=== PATIENT | female | born 1950 | race Caucasian/White ===

== ENCOUNTER → 2018-02-17 | Outpatient (CLI) | payer OTHER ==
[~2018-02-17] MED LIST: ALBUAER3 IN; ARIP1TAB5 PO; ATOR40TA52 PO; BUPR-60 PO; BUPR100T14 PO; CAR125T PO; CITA-77 PO; ESZO3TAB53 PO; FLUT250M2 INH; HYDR25TA4 PO; HYDR50CA2 PO; LISI10TA6 PO; OXYC10TA44 PO; POT10T PO; PROP60CA8 PO
[2018-02-17 08:38] LABS: Albumin 3.5 g/dL (3.4-5.0); BUN/Creatinine Ratio 13.7; Bilirubin, Total 0.3 mg/dL (0.2-1.0); Calcium 8.4 mg/dL (8.5-10.1); Potassium 4.2 mmol/L (3.5-5.1); Total Protein 6.5 g/dL (6.4-8.2)
== END | disposition home or self-care (01) ==
LOC: LAB 07:06
PROVIDERS: ATTEND Internal Medicine
DX: I10 Essential (primary) hypertension (principal); E78.00 Pure hypercholesterolemia, unspecified; R63.5 Abnormal weight gain
CPT/HCPCS: 36415; 80053; 84439; 84443

== ENCOUNTER → 2018-12-29 | Outpatient (CLI) | payer OTHER ==
[~2018-12-29] MED LIST changes: +PROP60CA34 PO; -PROP60CA8 PO
[2018-12-29 15:16] LABS: Basophils # (auto) 0 uL; Basophils % (auto) 0.5 % (0.0-2.0); Eosinophils # (auto) 0.1 uL; Eosinophils % (auto) 1.6 % (0.0-7.0); Hemoglobin 13.2 g/dL (12.2-16.2); Lymphocytes # (auto) 1.8 uL; Lymphocytes % (auto) 24.2 % (10.0-50.0); Mean Corpuscular Hemoglobin 29.3 pg (28.0-32.0); Mean Corpuscular Hgb Conc. 33.9 g/dL (32.0-36.0); Mean Corpuscular Volume 86.3 fL (80.0-100.0); Monocytes # (auto) 0.6 uL; Monocytes % (auto) 7.5 % (0.0-12.0); Neutrophils # (auto) 4.9 uL; Neutrophils % (auto) 66.2 % (37.0-80.0); Platelet Count (auto) 257 10^3/uL (140-450); Red Blood Cells 4.51 10^6/uL (4.0-5.20); Red Cell Distribution Width 14.3 % (11.8-14.3); White Blood Cell 7.4 10^3/uL (4.4-10.8)
[2018-12-29 15:35] LABS: Albumin 3.8 g/dL (3.4-5.0); Calcium 8.8 mg/dL (8.5-10.1); Potassium 4.2 mmol/L (3.5-5.1)
[2018-12-29 15:38] LABS: BUN/Creatinine Ratio 12.5; Bilirubin, Total 0.3 mg/dL (0.2-1.0); Total Protein 6.8 g/dL (6.4-8.2)
== END | disposition home or self-care (01) ==
LOC: LAB 14:45
PROVIDERS: ATTEND Internal Medicine
DX: R07.89 Other chest pain (principal); I10 Essential (primary) hypertension
CPT/HCPCS: 36415; 80053; 84443; 85025

== ENCOUNTER 2019-03-13 16:52 | Emergency (ER) | payer OTHER ==
[~2019-03-13] VITALS: Ht 157.5 cm; Wt 70.3 kg
[2019-03-13 18:22] VITALS: BP 140/68
== END 2019-03-13 19:01 | disposition home or self-care (01) ==
LOC: ER 16:54
DX: S63.502A Unspecified sprain of left wrist, initial encounter (principal); S63.501A Unspecified sprain of right wrist, initial encounter; S93.402A Sprain of unspecified ligament of left ankle, initial encounter; J44.9 Chronic obstructive pulmonary disease, unspecified; E78.5 Hyperlipidemia, unspecified; Z86.73 Personal history of transient ischemic attack (TIA), and cerebral infarction without residual deficits; Z79.899 Other long term (current) drug therapy; W19.XXXA Unspecified fall, initial encounter; Y93.89 Activity, other specified; Y99.8 Other external cause status; Y92.89 Other specified places as the place of occurrence of the external cause
CPT/HCPCS: 73100; 73120; 73600

== ENCOUNTER → 2019-06-12 | Outpatient (CLI) | payer OTHER | END | disposition home or self-care (01) | LOC: LAB 12:32 | PROVIDERS: ATTEND Internal Medicine | DX: R09.89 Other specified symptoms and signs involving the circulatory and respiratory systems (principal) | CPT/HCPCS: 36415; 82565; 84520 ==

== ENCOUNTER → 2020-04-15 | Outpatient (CLI) | payer OTHER ==
[~2020-04-15] MED LIST changes: +LISI-648 PO; -LISI10TA6 PO
[2020-04-15 08:19] LABS: Basophils # (auto) 0 10 ^3/uL (0-0.2); Basophils % (auto) 0.9 % (0.0-2.0); Eosinophils # (auto) 0.1 10 ^3/uL (0-0.8); Eosinophils % (auto) 1.9 % (0.0-7.0); Hematocrit 38.7 % (36.0-46.0); Hemoglobin 13.4 g/dL (12.2-16.2); Lymphocytes # (auto) 1.4 10 ^3/uL (0.4-5.4); Lymphocytes % (auto) 24.7 % (10.0-50.0); Mean Corpuscular Hemoglobin 30.7 pg (28.0-32.0); Mean Corpuscular Hgb Conc. 34.7 g/dL (32.0-36.0); Mean Corpuscular Volume 88.3 fL (80.0-100.0); Monocytes # (auto) 0.4 10 ^3/uL (0-1.3); Monocytes % (auto) 7.4 % (0.0-12.0); Neutrophils # (auto) 3.6 10 ^3/uL (1.6-8.6); Neutrophils % (auto) 65.1 % (37.0-80.0); Platelet Count (auto) 258 10^3/uL (140-450); Red Blood Cells 4.38 10^6/uL (4.0-5.20); Red Cell Distribution Width 13.3 % (11.8-14.3); White Blood Cell 5.5 10^3/uL (4.4-10.8)
[2020-04-15 08:38] LABS: Potassium 3.8 mmol/L (3.5-5.1)
[2020-04-15 08:52] LABS: Albumin 3.7 g/dL (3.4-5.0); BUN/Creatinine Ratio 8.7; Bilirubin, Total 0.4 mg/dL (0.2-1.0); Calcium 8.8 mg/dL (8.5-10.1); Total Protein 6.8 g/dL (6.4-8.2)
== END | disposition home or self-care (01) ==
LOC: LAB 07:43
PROVIDERS: ATTEND Internal Medicine
DX: I10 Essential (primary) hypertension (principal); F31.9 Bipolar disorder, unspecified
CPT/HCPCS: 36415; 80053; 84439; 84443; 85025; 85652

== ENCOUNTER → 2020-10-31 | Outpatient (CLI) | payer OTHER | END | disposition home or self-care (01) | LOC: LAB 10:08 | PROVIDERS: ATTEND Internal Medicine Pulmonary Disease | DX: Z01.812 Encounter for preprocedural laboratory examination (principal); Z20.822 Contact with and (suspected) exposure to COVID-19; J44.9 Chronic obstructive pulmonary disease, unspecified | CPT/HCPCS: 36415; 87426 ==

== ENCOUNTER → 2020-11-07 | Outpatient (CLI) | payer OTHER | END | disposition home or self-care (01) | LOC: XYW 11:19 | PROVIDERS: ATTEND Internal Medicine | DX: S43.431A Superior glenoid labrum lesion of right shoulder, initial encounter (principal); M19.011 Primary osteoarthritis, right shoulder; M25.711 Osteophyte, right shoulder; M25.411 Effusion, right shoulder; M75.101 Unspecified rotator cuff tear or rupture of right shoulder, not specified as traumatic; X58.XXXA Exposure to other specified factors, initial encounter; M25.511 Pain in right shoulder; Y93.89 Activity, other specified; Y92.89 Other specified places as the place of occurrence of the external cause; Y99.8 Other external cause status | CPT/HCPCS: 73221 ==

== ENCOUNTER → 2021-03-11 | Outpatient (CLI) | payer OTHER ==
[~2021-03-11] MED LIST changes: +BUPIVACAINE HCL 0.25% P/F 10 ML VIAL ONE; +IOHEXOL 300 MG/ML 100ML BOTTLE IJ ONE; +LIDOCAINE 2%HCL (LOCAL ANESTH.) INJ 20ML MDV ONE; -LISI-648 PO; +LISI-716 PO; +methylPREDNISolone ACETATE 80 MG/ML VL ONE
== END | disposition home or self-care (01) ==
LOC: XY 13:00
PROVIDERS: ATTEND Orthopaedic Surgery Sports Medicine
DX: M25.511 Pain in right shoulder (principal); J44.9 Chronic obstructive pulmonary disease, unspecified; F31.89 Other bipolar disorder; F99 Mental disorder, not otherwise specified; Z80.8 Family history of malignant neoplasm of other organs or systems; Z98.890 Other specified postprocedural states; Z79.899 Other long term (current) drug therapy; Z90.710 Acquired absence of both cervix and uterus; Z87.891 Personal history of nicotine dependence
CPT/HCPCS: 20610; 77002; J1040; J3490; Q9967

== ENCOUNTER → 2021-08-26 | Outpatient (CLI) | payer OTHER ==
[~2021-08-26] MED LIST changes: +BUPR-160 PO; -BUPR100T14 PO
== END | disposition home or self-care (01) ==
LOC: XY 12:30
PROVIDERS: ATTEND Orthopaedic Surgery Sports Medicine
DX: M19.011 Primary osteoarthritis, right shoulder (principal); J44.9 Chronic obstructive pulmonary disease, unspecified; Z90.710 Acquired absence of both cervix and uterus; Z87.891 Personal history of nicotine dependence; Z82.49 Family history of ischemic heart disease and other diseases of the circulatory system; Z80.8 Family history of malignant neoplasm of other organs or systems; Z82.5 Family history of asthma and other chronic lower respiratory diseases; Z81.8 Family history of other mental and behavioral disorders
CPT/HCPCS: 20611; 73020; J1040; J3490; Q9967; 76000

== ENCOUNTER → 2021-10-27 | Outpatient (CLI) | payer OTHER ==
[~2021-10-27] MED LIST changes: -BUPIVACAINE HCL 0.25% P/F 10 ML VIAL ONE; -IOHEXOL 300 MG/ML 100ML BOTTLE IJ ONE; -LIDOCAINE 2%HCL (LOCAL ANESTH.) INJ 20ML MDV ONE; -methylPREDNISolone ACETATE 80 MG/ML VL ONE
[2021-10-27 08:59] LABS: Urine Bacteria NONE SEEN /hpf (None Seen); Urine Blood Negative /uL (Negative); Urine Hyaline Cast FEW /lpf (0 - 2); Urine Specific Gravity 1.008 (1.001-1.035); Urine WBC 13 /hpf (0 - 5)
[2021-10-27 13:07] LABS: Basophils # (auto) 0 10 ^3/uL (0-0.2); Eosinophils # (auto) 0.1 10 ^3/uL (0-0.8); Eosinophils % (auto) 2.5 % (0.0-7.0); Hematocrit 35.9 % (36.0-46.0); Hemoglobin 12.4 g/dL (12.2-16.2); Lymphocytes # (auto) 1.2 10 ^3/uL (0.4-5.4); Lymphocytes % (auto) 29.5 % (10.0-50.0); Mean Corpuscular Hemoglobin 30.1 pg (28.0-32.0); Mean Corpuscular Hgb Conc. 34.5 g/dL (32.0-36.0); Mean Corpuscular Volume 87.2 fL (80.0-100.0); Monocytes # (auto) 0.3 10 ^3/uL (0-1.3); Monocytes % (auto) 7.7 % (0.0-12.0); Neutrophils # (auto) 2.5 10 ^3/uL (1.6-8.6); Neutrophils % (auto) 59.3 % (37.0-80.0); Nucleated Red Blood Cells % 0.1 %; Red Blood Cells 4.12 10^6/uL (4.0-5.20); Red Cell Distribution Width 13.6 % (11.8-14.3); White Blood Cell 4.2 10^3/uL (4.4-10.8)
[2021-10-27 13:18] LABS: Potassium 3.8 mmol/L (3.5-5.1)
[2021-10-27 13:25] LABS: Albumin 3.5 g/dL (3.4-5.0); Bilirubin, Total 0.5 mg/dL (0.2-1.0); Calcium 8.4 mg/dL (8.5-10.1); Total Protein 6.7 g/dL (6.4-8.2)
== END | disposition home or self-care (01) ==
LOC: LAB 06:54
PROVIDERS: ATTEND Internal Medicine
DX: I11.0 Hypertensive heart disease with heart failure (principal); I50.32 Chronic diastolic (congestive) heart failure; I70.0 Atherosclerosis of aorta; F31.9 Bipolar disorder, unspecified
CPT/HCPCS: 36415; 80053; 80061; 81001; 82043; 83036; 85025

== ENCOUNTER → 2022-04-29 | Outpatient (CLI) | payer OTHER ==
[2022-04-29 08:23] LABS: Urine Bacteria NONE SEEN /hpf (None Seen); Urine Blood Negative /uL (Negative); Urine Specific Gravity 1.005 (1.001-1.035); Urine WBC 6 /hpf (0 - 5)
== END | disposition home or self-care (01) ==
LOC: LAB 08:02
PROVIDERS: ATTEND Internal Medicine
DX: R73.03 Prediabetes (principal); N39.0 Urinary tract infection, site not specified
CPT/HCPCS: 36415; 81001; 84443; 87086

== ENCOUNTER → 2022-10-14 | Outpatient (CLI) | payer OTHER ==
[2022-10-14 10:10] LABS: Cholesterol 121 mg/dL (< 200); HDL Cholesterol 44 mg/dL (40-59); LDL Cholesterol 53 mg/dL (< 100); Triglycerides 174 mg/dL (< 150)
== END | disposition home or self-care (01) ==
LOC: LAB 08:38
PROVIDERS: ATTEND Internal Medicine
DX: Z00.00 Encounter for general adult medical examination without abnormal findings (principal); Z12.11 Encounter for screening for malignant neoplasm of colon; R73.03 Prediabetes
CPT/HCPCS: 36415; 80061; 83036; 84443

== ENCOUNTER → 2022-11-11 | Outpatient (CLI) | payer OTHER ==
[2022-11-11 09:46] LABS: Basophils # (auto) 0 10 ^3/uL (0-0.2); Basophils % (auto) 0.8 % (0.0-2.0); Eosinophils # (auto) 0.1 10 ^3/uL (0-0.8); Eosinophils % (auto) 2.5 % (0.0-7.0); Hematocrit 40.1 % (36.0-46.0); Hemoglobin 13.1 g/dL (12.2-16.2); Lymphocytes # (auto) 1.1 10 ^3/uL (0.4-5.4); Lymphocytes % (auto) 19.5 % (10.0-50.0); Mean Corpuscular Hemoglobin 28.2 pg (28.0-32.0); Mean Corpuscular Hgb Conc. 32.8 g/dL (32.0-36.0); Monocytes # (auto) 0.3 10 ^3/uL (0-1.3); Monocytes % (auto) 5.6 % (0.0-12.0); Neutrophils # (auto) 4.2 10 ^3/uL (1.6-8.6); Neutrophils % (auto) 71.6 % (37.0-80.0); Nucleated Red Blood Cells % 0.2 %; Red Blood Cells 4.66 10^6/uL (4.0-5.20); Red Cell Distribution Width 14.5 % (11.8-14.3); White Blood Cell 5.8 10^3/uL (4.4-10.8)
[2022-11-11 11:14] LABS: Albumin 3.3 g/dL (3.4-5.0); BUN/Creatinine Ratio 16.7; Bilirubin, Total 0.3 mg/dL (0.2-1.0); Calcium 8.8 mg/dL (8.5-10.1); Potassium 3.9 mmol/L (3.5-5.1); Total Protein 6.5 g/dL (6.4-8.2)
== END | disposition home or self-care (01) ==
LOC: LAB 09:22
PROVIDERS: ATTEND Internal Medicine
DX: M79.89 Other specified soft tissue disorders (principal); Z91.81 History of falling
CPT/HCPCS: 36415; 80053; 83880; 85025

== ENCOUNTER → 2023-04-20 | Outpatient (CLI) | payer OTHER ==
[~2023-04-20] MED LIST changes: -BUPR-160 PO; +BUPR-346 PO; -ESZO3TAB53 PO; +ESZO3TAB54 PO; -LISI-716 PO; +LISI10TA34 PO
== END | disposition home or self-care (01) ==
LOC: LAB 09:48
PROVIDERS: ATTEND Internal Medicine
DX: R07.9 Chest pain, unspecified (principal)
CPT/HCPCS: 36415; 84484; 85379

== ENCOUNTER → 2023-06-07 | Outpatient (CLI) | payer OTHER ==
[2023-06-07 10:46] LABS: Triglycerides 73 mg/dL (< 150)
[2023-06-07 10:47] LABS: Cholesterol 126 mg/dL (< 200); LDL Cholesterol 52 mg/dL (< 100)
[2023-06-07 10:48] LABS: HDL Cholesterol 53 mg/dL (40-59)
[2023-06-08 09:16] LABS: Creatinine, Urine 84.25 mg/dL (30.0-125.0)
== END | disposition home or self-care (01) ==
LOC: LAB 09:36
PROVIDERS: ATTEND Internal Medicine
DX: R73.03 Prediabetes (principal)
CPT/HCPCS: 36415; 80061; 82043; 82570; 83036

== ENCOUNTER → 2023-06-16 | Outpatient (CLI) | payer OTHER | END | disposition home or self-care (01) | LOC: LAB 12:23 | PROVIDERS: ATTEND Internal Medicine | DX: R22.1 Localized swelling, mass and lump, neck (principal) | CPT/HCPCS: 36415; 82565; 84520 ==

== ENCOUNTER → 2023-08-13 | Outpatient (CLI) | payer OTHER | END | disposition home or self-care (01) | LOC: LAB 13:20 | PROVIDERS: ATTEND Family Medicine | DX: B07.9 Viral wart, unspecified (principal) | CPT/HCPCS: 88302 ==

== ENCOUNTER 2023-08-28 10:03 | Emergency (ER) | payer OTHER ==
[~2023-08-28] VITALS: Ht 157.5 cm; Wt 64.0 kg
[2023-08-28 10:50] VITALS: TEMP 97.7
[2023-08-28] MEDS ORDERED: METH-1181 PO (11:49)
[2023-08-28] MEDS ORDERED: HYDROcodone-ACET 5/325MG TAB PO ONE (12:00)
[2023-08-28 12:05] VITALS: BP 156/73; PULSE 65; RESP 17; O2SAT 96
== END 2023-08-28 12:06 | disposition home or self-care (01) ==
LOC: ER 10:03
DX: S76.011A Strain of muscle, fascia and tendon of right hip, initial encounter (principal); J44.9 Chronic obstructive pulmonary disease, unspecified; E78.5 Hyperlipidemia, unspecified; Z79.899 Other long term (current) drug therapy; W19.XXXA Unspecified fall, initial encounter; Y93.89 Activity, other specified; Y92.89 Other specified places as the place of occurrence of the external cause; Y99.8 Other external cause status
CPT/HCPCS: 73502

== ENCOUNTER 2023-09-12 21:47 | Inpatient (IN) | payer MEDICAID, OTHER ==
[~2023-09-12] VITALS: Ht 157.5 cm; Wt 65.2 kg
[~2023-09-12 21:47] MED LIST changes: +METH-1181 PO
[2023-09-13] MEDS ORDERED: KETOROLAC TROMETH 60MG/2ML VIAL IM ONE (01:45)
[2023-09-13 02:13] LABS: Urine Bacteria NONE SEEN /hpf (None Seen); Urine Blood Negative /uL (Negative); Urine Clarity Clear (Clear); Urine Color Colorless (Yellow); Urine Protein, UAD Negative (Negative); Urine Urobilinogen Normal (Negative); Urine WBC <1 /hpf (0 - 5)
[2023-09-13 03:14] LABS: Basophils # (auto) 0.1 10 ^3/uL (0-0.2); Basophils % (auto) 0.7 % (0.0-2.0); Eosinophils # (auto) 0.2 10 ^3/uL (0-0.8); Eosinophils % (auto) 2.7 % (0.0-7.0); Hematocrit 34.8 % (36.0-46.0); Hemoglobin 12.1 g/dL (12.2-16.2); Lymphocytes % (auto) 11.1 % (10.0-50.0); Mean Corpuscular Hemoglobin 30.2 pg (28.0-32.0); Mean Corpuscular Hgb Conc. 34.7 g/dL (32.0-36.0); Mean Corpuscular Volume 86.8 fL (80.0-100.0); Monocytes # (auto) 0.5 10 ^3/uL (0-1.3); Neutrophils # (auto) 7.1 10 ^3/uL (1.6-8.6); Neutrophils % (auto) 79.5 % (37.0-80.0); Nucleated Red Blood Cells % 0.1 %; Red Cell Distribution Width 13.1 % (11.8-14.3)
[2023-09-13 03:23] LABS: Chloride 99 mmol/L (98-107); Potassium 3.5 mmol/L (3.5-5.1); Sodium 131 mmol/L (136-145)
[2023-09-13 03:24] LABS: Anion Gap 6 (5-15); Carbon Dioxide 26 mmol/L (20-30)
[2023-09-13 03:25] LABS: Calcium 9.2 mg/dL (8.7-10.4)
[2023-09-13 03:30] LABS: BUN/Creatinine Ratio 14.6 (10.0-20.0); Blood Urea Nitrogen 13 mg/dL (9-23); Glucose 112 mg/dL (74-106)
[2023-09-13 03:53] LABS: CRP High Sensitivity 1.63 mg/dL (<1.0)
[2023-09-13] MEDS ORDERED: ACETAMINOPHEN 325 MG TAB PO PRN (04:15)
[2023-09-13] MEDS ORDERED: DOCUSATE SOD 100 MG CAP PO PRN (04:15)
[2023-09-13] MEDS ORDERED: MAALOX PLUS or MAALOX 30 ML PO PRN (04:15)
[2023-09-13 04:16] LABS: Erythrocyte Sedimentation Rate 22 mm/hr (0-20)
[2023-09-13] MEDS: HYDROcodone-ACET 5/325MG TAB PO PRN ×2 (06:22→11:03)
[2023-09-13] MEDS: ONDANSETRON HCL 4 MG/2 ML VIAL IV PRN ×4 (06:41→21:08)
[2023-09-13 12:45] VITALS: O2SAT 98
[2023-09-13 13:00] VITALS: BP 150/78; PULSE 92; RESP 16; TEMP 97.9; O2SAT 96
[2023-09-13] MEDS: MORPHINE SULFATE INJ 2 MG/ml SYRG IV PRN ×3 (13:01→21:04)
[2023-09-13 16:51] VITALS: BP 148/71; PULSE 85; RESP 20; TEMP 98; O2SAT 91
[2023-09-13 22:00] VITALS: BP_SYST 131; BP_SYST 158; BP_DIAS 78; PULSE 75; PULSE 90; RESP 18; RESP 20; TEMP 98.2; TEMP 98.7; O2SAT 92
[2023-09-14] MEDS: MORPHINE SULFATE INJ 2 MG/ml SYRG IV PRN ×5 (01:04→20:30)
[2023-09-14] MEDS: ONDANSETRON HCL 4 MG/2 ML VIAL IV PRN ×4 (01:04→14:21)
[2023-09-14 05:00] VITALS: BP 135/81; PULSE 86; RESP 18; TEMP 98; O2SAT 93
[2023-09-14 09:00] VITALS: BP 129/88; PULSE 89; RESP 17; TEMP 97.8; O2SAT 94
[2023-09-14 13:00] VITALS: BP 152/75; PULSE 90; RESP 18; TEMP 97.6; O2SAT 92
[2023-09-14] MEDS ORDERED: ENOXAPARIN SOD 30 MG/0.3 ML SYRINGE IV ONE (14:15)
[2023-09-14] MEDS: BACLOFEN 10 MG TAB PO PRN (16:52)
[2023-09-14 17:00] VITALS: BP 150/71; PULSE 90; RESP 18; TEMP 97.9; O2SAT 91
[2023-09-14 20:00] VITALS: PULSE 80; RESP 19
[2023-09-14] MEDS: DOCUSATE SOD 100 MG CAP PO SCH (21:52)
[2023-09-14] MEDS: CARVEDILOL 12.5 MG TAB PO SCH (21:54)
[2023-09-14] MEDS: ATORVASTATIN 20 MG TAB PO SCH (21:55)
[2023-09-14] MEDS: buPROPion HCL 75 MG TAB PO SCH (21:55)
[2023-09-14 22:00] VITALS: BP 141/76; PULSE 80; RESP 19; TEMP 98.2; O2SAT 94
[2023-09-14] MEDS ORDERED: PATIENTS OWN MEDICATION (Atorvastatin Calcium 40 MG) PO SCH (22:00)
[2023-09-14] MEDS: HYDROcodone-ACET 5/325MG TAB PO PRN (22:40)
[2023-09-15] MEDS: MORPHINE SULFATE INJ 2 MG/ml SYRG IV PRN ×4 (04:36→20:05)
[2023-09-15 05:00] VITALS: BP 155/77; PULSE 75; RESP 17; TEMP 98.2; O2SAT 96
[2023-09-15 09:00] VITALS: BP 166/80; PULSE 75; RESP 17; TEMP 98.4; O2SAT 95
[2023-09-15] MEDS ORDERED: PATIENTS OWN MEDICATION (Hydrochlorothiazide 1 TAB) PO SCH (10:00)
[2023-09-15] MEDS ORDERED: BUPROPION HCL 300 MG PO SCH (10:00)
[2023-09-15] MEDS ORDERED: LISINOPRIL 10 MG TAB PO SCH (10:00)
[2023-09-15] MEDS: DOCUSATE SOD 100 MG CAP PO SCH ×2 (10:03→21:23)
[2023-09-15] MEDS: CARVEDILOL 12.5 MG TAB PO SCH ×2 (10:03→21:24)
[2023-09-15] MEDS: buPROPion HCL 75 MG TAB PO SCH ×2 (10:03→21:24)
[2023-09-15] MEDS: LISINOPRIL 10 MG TAB PO SCH (10:03)
[2023-09-15] MEDS: CITALOPRAM HYDROBR 20 MG TAB PO SCH (10:04)
[2023-09-15] MEDS: PANTOPRAZOLE 40 MG TAB PO SCH (10:04)
[2023-09-15] MEDS: hydroCHLOROthiazide 25 MG TAB PO SCH (10:04)
[2023-09-15] MEDS: BACLOFEN 10 MG TAB PO PRN (10:04)
[2023-09-15] MEDS: ENOXAPARIN SOD 30 MG/0.3 ML SYRINGE SC SCH (10:05)
[2023-09-15 13:00] VITALS: BP 144/67; PULSE 75; RESP 18; TEMP 97.9; O2SAT 96
[2023-09-15] MEDS: HYDROcodone-ACET 5/325MG TAB PO PRN ×2 (16:45→22:40)
[2023-09-15 17:00] VITALS: BP 138/60; PULSE 74; RESP 17; TEMP 97.7; O2SAT 93
[2023-09-15 20:00] VITALS: BP 127/79; PULSE 79; RESP 20; TEMP 98.3; O2SAT 0
[2023-09-15] MEDS: ATORVASTATIN 20 MG TAB PO SCH (21:24)
[2023-09-15 22:00] VITALS: BP 127/56; PULSE 77; RESP 20; TEMP 98.4; O2SAT 90
[2023-09-15] MEDS: ONDANSETRON HCL 4 MG/2 ML VIAL IV PRN (22:13)
[2023-09-16] VITALS (8 sets, daily range): BP systolic 117–154; BP diastolic 72–91; PULSE 74–81; RESP 16–20; TEMP 36.5; O2SAT 0–96
[2023-09-16] MEDS: MORPHINE SULFATE INJ 2 MG/ml SYRG IV PRN ×4 (03:19→20:40)
[2023-09-16] MEDS: HYDROcodone-ACET 5/325MG TAB PO PRN ×3 (06:06→23:21)
[2023-09-16] MEDS: CITALOPRAM HYDROBR 20 MG TAB PO SCH (09:10)
[2023-09-16] MEDS: PANTOPRAZOLE 40 MG TAB PO SCH (09:10)
[2023-09-16] MEDS: ENOXAPARIN SOD 30 MG/0.3 ML SYRINGE SC SCH (09:10)
[2023-09-16] MEDS: buPROPion HCL 75 MG TAB PO SCH ×2 (09:10→21:17)
[2023-09-16] MEDS: hydroCHLOROthiazide 25 MG TAB PO SCH (09:11)
[2023-09-16] MEDS: LISINOPRIL 10 MG TAB PO SCH (09:11)
[2023-09-16] MEDS: DOCUSATE SOD 100 MG CAP PO SCH ×2 (09:12→21:16)
[2023-09-16] MEDS: CARVEDILOL 12.5 MG TAB PO SCH ×2 (09:12→21:17)
[2023-09-16] MEDS ORDERED: LORazepam 0.5 MG TAB PO PRN (16:30)
[2023-09-16] MEDS: BACLOFEN 10 MG TAB PO PRN (17:36)
[2023-09-16] MEDS: ONDANSETRON HCL 4 MG/2 ML VIAL IV PRN (17:37)
[2023-09-16] MEDS: ATORVASTATIN 20 MG TAB PO SCH (21:16)
[2023-09-17] MEDS: ONDANSETRON HCL 4 MG/2 ML VIAL IV PRN (00:57)
== END 2023-09-17 01:40 | disposition short-term general hospital (02) | DRG 552 ==
LOC: ER 21:47 → OVERFLOW 09-13 04:02 → WEST WING 09-13 12:45
PROVIDERS: ADMIT Hospitalist; ATTEND Internal Medicine Geriatric Medicine
DX: S32.14XA Type 1 fracture of sacrum, initial encounter for closed fracture (principal); E87.1 Hypo-osmolality and hyponatremia; S32.15XA Type 2 fracture of sacrum, initial encounter for closed fracture; E78.5 Hyperlipidemia, unspecified; I10 Essential (primary) hypertension; W01.0XXA Fall on same level from slipping, tripping and stumbling without subsequent striking against object, initial encounter; J44.9 Chronic obstructive pulmonary disease, unspecified; I25.10 Atherosclerotic heart disease of native coronary artery without angina pectoris; R32 Unspecified urinary incontinence; Z82.0 Family history of epilepsy and other diseases of the nervous system; Z82.49 Family history of ischemic heart disease and other diseases of the circulatory system; Z82.5 Family history of asthma and other chronic lower respiratory diseases; Y93.89 Activity, other specified; Y92.89 Other specified places as the place of occurrence of the external cause; Y99.8 Other external cause status
CPT/HCPCS: 36415; 72131; 72148; 80048; 81001; 85025; 85652; 86141; 96372; G0378; J1885; J2405

== ENCOUNTER 2023-09-21 13:34 | Inpatient (IN) | payer MEDICAID ==
[~2023-09-21] VITALS: Ht 157.5 cm; Wt 66.7 kg
[~2023-09-21 13:34] MED LIST changes: -BUPR-346 PO; -ESZO3TAB54 PO; -FLUT250M2 INH; -POT10T PO
[2023-09-21] MEDS ORDERED: ACETAMINOPHEN 325 MG TAB PO PRN (22:00)
[2023-09-21] MEDS ORDERED: ALBUTEROL SULF 2.5 MG/0.5ML(0.5%) NEB SOLN NEB PRN (22:00)
[2023-09-21] MEDS ORDERED: ONDANSETRON HCL 4 MG/2 ML VIAL IV PRN (22:00)
[2023-09-21 23:29] LABS: Basophils # (auto) 0 10 ^3/uL (0-0.2); Basophils % (auto) 0.7 % (0.0-2.0); Eosinophils # (auto) 0.1 10 ^3/uL (0-0.8); Eosinophils % (auto) 1.9 % (0.0-7.0); Hematocrit 31.7 % (36.0-46.0); Hemoglobin 10.9 g/dL (12.2-16.2); Lymphocytes # (auto) 1.7 10 ^3/uL (0.4-5.4); Lymphocytes % (auto) 28.5 % (10.0-50.0); Mean Corpuscular Hemoglobin 30.2 pg (28.0-32.0); Mean Corpuscular Hgb Conc. 34.3 g/dL (32.0-36.0); Mean Corpuscular Volume 87.9 fL (80.0-100.0); Monocytes # (auto) 0.7 10 ^3/uL (0-1.3); Monocytes % (auto) 11.5 % (0.0-12.0); Neutrophils # (auto) 3.5 10 ^3/uL (1.6-8.6); Neutrophils % (auto) 57.4 % (37.0-80.0); Red Blood Cells 3.61 10^6/uL (4.0-5.20); Red Cell Distribution Width 13.3 % (11.8-14.3); White Blood Cell 6.1 10^3/uL (4.4-10.8)
[2023-09-21 23:44] LABS: Alkaline Phosphatase 197 U/L (46-116); Anion Gap 6 (5-15); Aspartate Aminotransferase 12 U/L (13-40); BUN/Creatinine Ratio 20.3 (10.0-20.0); Blood Urea Nitrogen 14 mg/dL (9-23); Calcium 8.8 mg/dL (8.7-10.4); Carbon Dioxide 26 mmol/L (20-30); Chloride 101 mmol/L (98-107); Glucose 98 mg/dL (74-106); Potassium 3.8 mmol/L (3.5-5.1); Sodium 133 mmol/L (136-145)
[2023-09-21 23:45] LABS: Alanine Aminotransferase < 9 U/L (7-40); Albumin 3.9 g/dL (3.2-4.8); Bilirubin, Total 0.3 mg/dL (0.2-1.0); Total Protein 5.9 g/dL (5.7-8.2)
[2023-09-22] VITALS (9 sets, daily range): BP systolic 110–142; BP diastolic 50–67; PULSE 75–86; RESP 18–20; TEMP 97.6–98.8; O2SAT 91–100
[2023-09-22] MEDS: MORPHINE SULFATE INJ 2 MG/ml SYRG IV PRN ×4 (00:27→21:48)
[2023-09-22] MEDS: CARVEDILOL 3.125 MG TAB PO SCH ×3 (00:28→21:48)
[2023-09-22] MEDS: ATORVASTATIN 20 MG TAB PO SCH ×2 (00:28→21:42)
[2023-09-22] MEDS: GABAPENTIN 100 MG CAP PO SCH ×4 (00:28→21:42)
[2023-09-22] MEDS: buPROPion HCL 75 MG TAB PO SCH ×2 (06:21→18:10)
[2023-09-22] MEDS ORDERED: LOSARTAN POTASSIUM 25 MG TAB PO SCH (10:00)
[2023-09-22] MEDS: HYDROcodone-ACET 5/325MG TAB PO PRN ×2 (10:05→18:10)
[2023-09-22] MEDS: ENOXAPARIN SOD 40 MG/0.4 ML SYRINGE SC SCH (10:05)
[2023-09-22] MEDS: LISINOPRIL 20 MG TAB PO SCH (10:06)
[2023-09-22] MEDS: CITALOPRAM HYDROBR 20 MG TAB PO SCH (10:07)
[2023-09-22] MEDS: hydroCHLOROthiazide 25 MG TAB PO SCH (10:07)
[2023-09-22 11:39] LABS: Urine Epithelial Cast None Seen /hpf (<5)
[2023-09-22 11:52] LABS: Urine Bacteria FEW /hpf (None Seen); Urine Blood Negative /uL (Negative); Urine Clarity Clear (Clear); Urine Color Colorless (Yellow); Urine Protein, UAD Negative (Negative); Urine Specific Gravity 1.012 (1.001-1.035); Urine Urobilinogen Normal (Negative); Urine WBC 6 /hpf (0 - 5); Urine pH 6.5 (5.0-8.0)
[2023-09-22] MEDS ORDERED: LACTULOSE 20Gm/30ML SOLN PO ONE (14:30)
[2023-09-22] MEDS ORDERED: LOSA25TA15 PO (15:14)
[2023-09-22] MEDS ORDERED: GABA-1308 PO (15:20)
[2023-09-23] VITALS (10 sets, daily range): BP systolic 115–139; BP diastolic 58–68; PULSE 68–81; RESP 18–21; TEMP 97.2–98.9; O2SAT 92–100
[2023-09-23] MEDS: HYDROcodone-ACET 5/325MG TAB PO PRN ×3 (01:38→20:17)
[2023-09-23] MEDS: MORPHINE SULFATE INJ 2 MG/ml SYRG IV PRN ×2 (04:56→13:40)
[2023-09-23] MEDS: buPROPion HCL 75 MG TAB PO SCH ×2 (06:45→18:18)
[2023-09-23] MEDS: GABAPENTIN 100 MG CAP PO SCH ×3 (06:45→22:48)
[2023-09-23] MEDS: LISINOPRIL 20 MG TAB PO SCH (09:16)
[2023-09-23] MEDS: hydroCHLOROthiazide 25 MG TAB PO SCH (09:16)
[2023-09-23] MEDS: CITALOPRAM HYDROBR 20 MG TAB PO SCH (09:16)
[2023-09-23] MEDS: CARVEDILOL 3.125 MG TAB PO SCH ×2 (09:17→22:47)
[2023-09-23] MEDS: ENOXAPARIN SOD 40 MG/0.4 ML SYRINGE SC SCH (09:18)
[2023-09-23] MEDS ORDERED: LACTULOSE 20Gm/30ML SOLN PO PRN (10:00)
[2023-09-23] MEDS: ATORVASTATIN 20 MG TAB PO SCH (22:48)
[2023-09-24] VITALS (8 sets, daily range): BP systolic 107–130; BP diastolic 57–72; PULSE 71–83; RESP 16–20; TEMP 97.6–98.2; O2SAT 94–100
[2023-09-24] MEDS: MORPHINE SULFATE INJ 2 MG/ml SYRG IV PRN ×2 (02:20→11:09)
[2023-09-24] MEDS: buPROPion HCL 75 MG TAB PO SCH (06:15)
[2023-09-24] MEDS: HYDROcodone-ACET 5/325MG TAB PO PRN ×2 (06:15→16:51)
[2023-09-24] MEDS: GABAPENTIN 100 MG CAP PO SCH ×2 (06:15→16:51)
[2023-09-24] MEDS: hydroCHLOROthiazide 25 MG TAB PO SCH (11:06)
[2023-09-24] MEDS: ENOXAPARIN SOD 40 MG/0.4 ML SYRINGE SC SCH (11:07)
[2023-09-24] MEDS: LISINOPRIL 20 MG TAB PO SCH (11:07)
[2023-09-24] MEDS: CITALOPRAM HYDROBR 20 MG TAB PO SCH (11:07)
[2023-09-24] MEDS: CARVEDILOL 3.125 MG TAB PO SCH (11:08)
== END 2023-09-24 17:00 | DRG 552 ==
LOC: UNDOADMIN 21:48 → WEST WING 21:48
PROVIDERS: ADMIT Internal Medicine Geriatric Medicine; ATTEND Internal Medicine Geriatric Medicine
DX: S32.10XA Unspecified fracture of sacrum, initial encounter for closed fracture (principal); J44.9 Chronic obstructive pulmonary disease, unspecified; I10 Essential (primary) hypertension; F31.9 Bipolar disorder, unspecified; I25.10 Atherosclerotic heart disease of native coronary artery without angina pectoris; E78.5 Hyperlipidemia, unspecified; Z96.643 Presence of artificial hip joint, bilateral; K59.00 Constipation, unspecified; X58.XXXA Exposure to other specified factors, initial encounter; Y93.89 Activity, other specified; Y92.89 Other specified places as the place of occurrence of the external cause; Y99.8 Other external cause status
CPT/HCPCS: 36415; 80053; 81001; 85025; 97110; 97116; 97163; 97530; G0378

== ENCOUNTER 2023-09-30 18:35 | Inpatient (IN) | payer MEDICAID ==
[~2023-09-30] VITALS: Ht 157.5 cm; Wt 63.5 kg
[~2023-09-30 18:35] MED LIST changes: +GABA-1308 PO; -LISI10TA34 PO; +LOSA25TA15 PO; -PROP60CA34 PO
[2023-09-30 19:45] VITALS: PULSE 86; RESP 16; O2SAT 96
[2023-09-30 20:10] LABS: Alanine Aminotransferase 10 U/L (7-40); Albumin 4.1 g/dL (3.2-4.8); Alkaline Phosphatase 208 U/L (46-116); Anion Gap 5 (5-15); Aspartate Aminotransferase 10 U/L (13-40); BUN/Creatinine Ratio 17.7 (10.0-20.0); Bilirubin, Total 0.4 mg/dL (0.2-1.0); Blood Urea Nitrogen 14 mg/dL (9-23); Calcium 9.1 mg/dL (8.7-10.4); Carbon Dioxide 24 mmol/L (20-30); Chloride 95 mmol/L (98-107); Glucose 129 mg/dL (74-106); Magnesium 1.6 mg/dL (1.6-2.6); Potassium 4.1 mmol/L (3.5-5.1); Sodium 124 mmol/L (136-145)
[2023-09-30 20:11] LABS: Total Protein 6.1 g/dL (5.7-8.2)
[2023-09-30] MEDS ORDERED: NITROGLYCERIN 0.4 MG SL TAB SL PRN (20:45)
[2023-09-30] MEDS ORDERED: MORPHINE SULFATE INJ 2 MG/ml SYRG IV PRN (20:45)
[2023-09-30] MEDS ORDERED: ACETAMINOPHEN 325 MG TAB PO PRN (20:45)
[2023-09-30] MEDS ORDERED: DOCUSATE SOD 100 MG CAP PO PRN (20:45)
[2023-09-30] MEDS ORDERED: LORA-1121 PO (20:48)
[2023-09-30] MEDS ORDERED: hydrOXYzine 25 MG TAB or CAP PO PRN (21:00)
[2023-09-30] MEDS ORDERED: ALBUTEROL SULF 2.5 MG/0.5ML(0.5%) NEB SOLN NEB PRN (21:00)
[2023-09-30] MEDS ORDERED: IPRATROPIUM BROM 0.5 MG/2.5ML INH SOL NEB PRN (21:00)
[2023-09-30] MEDS ORDERED: LORazepam 0.5 MG TAB PO PRN (21:00)
[2023-09-30] MEDS: ATORVASTATIN 20 MG TAB PO SCH (21:18)
[2023-09-30] MEDS: METHOCARBAMOL 500 MG TAB PO SCH (21:19)
[2023-09-30] MEDS: CARVEDILOL 12.5 MG TAB PO SCH (21:20)
[2023-09-30] MEDS: GABAPENTIN 300 MG CAP PO SCH (21:20)
[2023-09-30] MEDS: OXYCODONE PO SCH (21:26)
[2023-09-30] MEDS: ACETAMINOPHEN PO SCH (21:26)
[2023-09-30 23:08] VITALS: BP 118/38; PULSE 78; RESP 20; O2SAT 97
[2023-09-30 23:15] VITALS: BP 129/63; PULSE 74; RESP 20; TEMP 97.7; O2SAT 94
[2023-10-01] VITALS (9 sets, daily range): BP systolic 96–123; BP diastolic 50–72; PULSE 68–98; RESP 16–18; TEMP 97.6–98; O2SAT 93–99
[2023-10-01] MEDS: HYDROcodone-ACET 5/325MG TAB PO PRN ×3 (00:50→16:21)
[2023-10-01 07:02] LABS: Basophils # (auto) 0.1 10 ^3/uL (0-0.2); Basophils % (auto) 1.3 % (0.0-2.0); Eosinophils # (auto) 0.2 10 ^3/uL (0-0.8); Eosinophils % (auto) 3.5 % (0.0-7.0); Hematocrit 35.7 % (36.0-46.0); Hemoglobin 12.4 g/dL (12.2-16.2); Lymphocytes # (auto) 1.6 10 ^3/uL (0.4-5.4); Lymphocytes % (auto) 34.4 % (10.0-50.0); Mean Corpuscular Hemoglobin 30.3 pg (28.0-32.0); Mean Corpuscular Hgb Conc. 34.7 g/dL (32.0-36.0); Mean Corpuscular Volume 87.2 fL (80.0-100.0); Monocytes # (auto) 0.6 10 ^3/uL (0-1.3); Monocytes % (auto) 11.8 % (0.0-12.0); Neutrophils # (auto) 2.3 10 ^3/uL (1.6-8.6); Nucleated Red Blood Cells % 0.1 %; Red Cell Distribution Width 13.1 % (11.8-14.3); White Blood Cell 4.7 10^3/uL (4.4-10.8)
[2023-10-01 07:17] LABS: Alanine Aminotransferase 11 U/L (7-40); Alkaline Phosphatase 222 U/L (46-116); Anion Gap 5 (5-15); Aspartate Aminotransferase 13 U/L (13-40); BUN/Creatinine Ratio 13.6 (10.0-20.0); Blood Urea Nitrogen 9 mg/dL (9-23); Calcium 9.5 mg/dL (8.5-10.1); Carbon Dioxide 24 mmol/L (20-30); Chloride 95 mmol/L (98-107); Glucose 91 mg/dL (74-106); Sodium 124 mmol/L (136-145)
[2023-10-01 07:18] LABS: Albumin 4.3 g/dL (3.2-4.8); Bilirubin, Total 0.6 mg/dL (0.2-1.0); Total Protein 6.3 g/dL (5.7-8.2)
[2023-10-01] MEDS: METHOCARBAMOL 500 MG TAB PO SCH ×2 (09:47→21:30)
[2023-10-01] MEDS: CITALOPRAM HYDROBR 20 MG TAB PO SCH (09:47)
[2023-10-01] MEDS: CARVEDILOL 12.5 MG TAB PO SCH ×2 (09:49→21:30)
[2023-10-01] MEDS: LOSARTAN POTASSIUM 25 MG TAB PO SCH (09:49)
[2023-10-01] MEDS: BUPROPION HCL 300 MG PO SCH (09:54)
[2023-10-01] MEDS: OXYCODONE PO SCH ×2 (09:54→21:28)
[2023-10-01] MEDS: ACETAMINOPHEN PO SCH ×2 (09:54→21:28)
[2023-10-01] MEDS ORDERED: UREA 15gm PO Powder PKG PO SCH (11:45)
[2023-10-01] MEDS: ONDANSETRON HCL 4 MG/2 ML VIAL IV PRN (13:09)
[2023-10-01] MEDS: HYDROcodone-ACET 10/325MG TAB PO PRN ×2 (13:09→19:59)
[2023-10-01] MEDS: ATORVASTATIN 20 MG TAB PO SCH (21:30)
[2023-10-01] MEDS: GABAPENTIN 300 MG CAP PO SCH (21:30)
[2023-10-01] MEDS: UREA 15gm PO Powder PKG PO SCH (22:42)
[2023-10-02] VITALS (8 sets, daily range): BP systolic 96–119; BP diastolic 48–89; PULSE 74–81; RESP 16–20; TEMP 97.4–98.1; O2SAT 91–98
[2023-10-02] MEDS: UREA 15gm PO Powder PKG PO SCH ×2 (06:17→14:59)
[2023-10-02] MEDS: LOSARTAN POTASSIUM 25 MG TAB PO SCH (09:22)
[2023-10-02] MEDS: CARVEDILOL 12.5 MG TAB PO SCH ×2 (09:22→21:30)
[2023-10-02] MEDS: ENOXAPARIN SOD 40 MG/0.4 ML SYRINGE SC SCH (09:23)
[2023-10-02] MEDS: METHOCARBAMOL 500 MG TAB PO SCH ×2 (09:23→21:30)
[2023-10-02] MEDS: CITALOPRAM HYDROBR 20 MG TAB PO SCH (09:23)
[2023-10-02] MEDS: HYDROcodone-ACET 10/325MG TAB PO PRN ×3 (09:24→22:38)
[2023-10-02] MEDS: ACETAMINOPHEN PO SCH ×2 (09:25→21:27)
[2023-10-02] MEDS: BUPROPION HCL 300 MG PO SCH (09:25)
[2023-10-02] MEDS: OXYCODONE PO SCH ×2 (09:25→21:27)
[2023-10-02 09:41] LABS: Chloride 97 mmol/L (98-107); Potassium 3.9 mmol/L (3.5-5.1)
[2023-10-02 09:42] LABS: Anion Gap 4 (5-15); Calcium 9.8 mg/dL (8.5-10.1); Carbon Dioxide 30 mmol/L (20-30)
[2023-10-02 09:47] LABS: BUN/Creatinine Ratio 53.1 (10.0-20.0); Glucose 74 mg/dL (74-106)
[2023-10-02 09:53] LABS: Blood Urea Nitrogen 43 mg/dL (9-23); Sodium 131 mmol/L (136-145)
[2023-10-02] MEDS: ATORVASTATIN 20 MG TAB PO SCH (21:30)
[2023-10-02] MEDS: GABAPENTIN 300 MG CAP PO SCH (21:30)
[2023-10-03] VITALS (11 sets, daily range): BP systolic 97–147; BP diastolic 47–89; PULSE 58–79; RESP 16–19; TEMP 97.4–97.9; O2SAT 91–97
[2023-10-03 07:31] LABS: Anion Gap 4 (5-15); Carbon Dioxide 30 mmol/L (20-30); Chloride 97 mmol/L (98-107)
[2023-10-03 07:33] LABS: Calcium 10.1 mg/dL (8.7-10.4)
[2023-10-03 07:35] LABS: Sodium 131 mmol/L (136-145)
[2023-10-03 07:38] LABS: BUN/Creatinine Ratio 29.7 (10.0-20.0); Blood Urea Nitrogen 22 mg/dL (9-23); Glucose 92 mg/dL (74-106)
[2023-10-03] MEDS: HYDROcodone-ACET 10/325MG TAB PO PRN ×4 (09:08→22:57)
[2023-10-03] MEDS: ACETAMINOPHEN PO SCH ×2 (10:00→21:32)
[2023-10-03] MEDS: BUPROPION HCL 300 MG PO SCH (10:00)
[2023-10-03] MEDS: OXYCODONE PO SCH ×2 (10:00→21:32)
[2023-10-03] MEDS: LOSARTAN POTASSIUM 25 MG TAB PO SCH (10:22)
[2023-10-03] MEDS: METHOCARBAMOL 500 MG TAB PO SCH ×2 (10:22→21:40)
[2023-10-03] MEDS: CITALOPRAM HYDROBR 20 MG TAB PO SCH (10:23)
[2023-10-03] MEDS: ENOXAPARIN SOD 40 MG/0.4 ML SYRINGE SC SCH (10:23)
[2023-10-03] MEDS: CARVEDILOL 12.5 MG TAB PO SCH ×2 (10:23→21:41)
[2023-10-03] MEDS: ONDANSETRON HCL 4 MG/2 ML VIAL IV PRN (17:05)
[2023-10-03] MEDS: ATORVASTATIN 20 MG TAB PO SCH (21:40)
[2023-10-03] MEDS: GABAPENTIN 300 MG CAP PO SCH (21:40)
[2023-10-04 04:12] VITALS: BP 134/65; PULSE 71; RESP 19; O2SAT 94
[2023-10-04 05:00] VITALS: BP 114/62; PULSE 72; RESP 19; TEMP 98.7; O2SAT 94
[2023-10-04] MEDS: HYDROcodone-ACET 10/325MG TAB PO PRN ×2 (05:09→11:42)
[2023-10-04 08:00] VITALS: BP 134/53; PULSE 74; PULSE 82; RESP 18; TEMP 97.8; O2SAT 95
[2023-10-04] MEDS: BUPROPION HCL 300 MG PO SCH (10:00)
[2023-10-04] MEDS: ACETAMINOPHEN PO SCH (10:00)
[2023-10-04] MEDS: OXYCODONE PO SCH (10:00)
[2023-10-04] MEDS: CITALOPRAM HYDROBR 20 MG TAB PO SCH (10:26)
[2023-10-04] MEDS: CARVEDILOL 12.5 MG TAB PO SCH (10:27)
[2023-10-04] MEDS: LOSARTAN POTASSIUM 25 MG TAB PO SCH (10:27)
[2023-10-04] MEDS: METHOCARBAMOL 500 MG TAB PO SCH (10:28)
[2023-10-04] MEDS: ENOXAPARIN SOD 40 MG/0.4 ML SYRINGE SC SCH (10:28)
[2023-10-04 10:33] VITALS: O2SAT 95
[2023-10-04 13:00] VITALS: BP 89/51; PULSE 84; RESP 18; TEMP 97.8; O2SAT 98
[2023-10-04 14:11] VITALS: BP 148/64; PULSE 74; RESP 18; TEMP 36.6; O2SAT 97
== END 2023-10-04 15:11 | DRG 645 ==
LOC: ER 18:35 → EDUNIT# 18:35 → EDBD 18:35 → TELE 20:44 → TELE-WESTW 23:08
PROVIDERS: ADMIT Nurse Practitioner Family; ATTEND Internal Medicine
DX: E22.2 Syndrome of inappropriate secretion of antidiuretic hormone (principal); I10 Essential (primary) hypertension; F31.9 Bipolar disorder, unspecified; I25.10 Atherosclerotic heart disease of native coronary artery without angina pectoris; Z96.643 Presence of artificial hip joint, bilateral; F41.9 Anxiety disorder, unspecified; E78.5 Hyperlipidemia, unspecified; J44.9 Chronic obstructive pulmonary disease, unspecified; Z79.891 Long term (current) use of opiate analgesic; Z79.899 Other long term (current) drug therapy; Z82.0 Family history of epilepsy and other diseases of the nervous system; Z82.49 Family history of ischemic heart disease and other diseases of the circulatory system; Z82.5 Family history of asthma and other chronic lower respiratory diseases; T43.225A Adverse effect of selective serotonin reuptake inhibitors, initial encounter
CPT/HCPCS: 36415; 71045; 80048; 80053; 82306; 82533; 83735; 83880; 83930; 83935; 84295; 84300; 84443; 84550; 85025; 87081; 97110; 97163; 97530; G0378; J2405

== ENCOUNTER 2023-11-12 18:56 | Inpatient (IN) | payer MEDICAID ==
[~2023-11-12] VITALS: Ht 160 cm; Wt 65.6 kg
[~2023-11-12 18:56] MED LIST changes: +LORA-1121 PO
[2023-11-12] MEDS: methylPREDNISolone SOD SUCC 125 MG/2 ML VL IV ONE (19:15)
[2023-11-12] MEDS: ALBUTEROL SULF 2.5 MG/0.5ML(0.5%) NEB SOLN ONE (19:16)
[2023-11-12] MEDS: ALBUTEROL SULF 2.5 MG/0.5ML(0.5%) NEB SOLN NEB ONE (19:16)
[2023-11-12] MEDS: IPRATROPIUM BROM 0.5 MG/2.5ML INH SOL ONE (19:16)
[2023-11-12] MEDS: IPRATROPIUM BROM 0.5 MG/2.5ML INH SOL NEB ONE (19:16)
[2023-11-12 19:45] LABS: Basophils # (auto) 0.1 10 ^3/uL (0-0.2); Basophils % (auto) 0.6 % (0.0-2.0); Eosinophils # (auto) 0.2 10 ^3/uL (0-0.8); Eosinophils % (auto) 2.8 % (0.0-7.0); Hematocrit 37.5 % (36.0-46.0); Hemoglobin 12.3 g/dL (12.2-16.2); Lymphocytes # (auto) 1.2 10 ^3/uL (0.4-5.4); Lymphocytes % (auto) 15.1 % (10.0-50.0); Mean Corpuscular Hemoglobin 29.5 pg (28.0-32.0); Mean Corpuscular Hgb Conc. 32.9 g/dL (32.0-36.0); Mean Corpuscular Volume 89.7 fL (80.0-100.0); Monocytes # (auto) 0.6 10 ^3/uL (0-1.3); Neutrophils # (auto) 6.1 10 ^3/uL (1.6-8.6); Neutrophils % (auto) 74.5 % (37.0-80.0); Red Blood Cells 4.19 10^6/uL (4.0-5.20); Red Cell Distribution Width 14.4 % (11.8-14.3); White Blood Cell 8.2 10^3/uL (4.4-10.8)
[2023-11-12 20:04] LABS: INR 1.03 (0.9-1.15); Partial Thromboplastin Time 28.9 SEC (24.5-34.5); Prothrombin Time 10.8 sec (9.3-11.8)
[2023-11-12 20:10] LABS: Alanine Aminotransferase 15 U/L (7-40); Albumin 4.3 g/dL (3.2-4.8); Alkaline Phosphatase 94 U/L (46-116); Anion Gap 4 (5-15); Aspartate Aminotransferase 18 U/L (13-40); BUN/Creatinine Ratio 11.7 (10.0-20.0); Bilirubin, Total 0.4 mg/dL (0.2-1.0); Blood Urea Nitrogen 11 mg/dL (9-23); Calcium 9.3 mg/dL (8.5-10.1); Carbon Dioxide 30 mmol/L (20-30); Chloride 103 mmol/L (98-107); Glucose 94 mg/dL (74-106); Potassium 4.2 mmol/L (3.5-5.1); Sodium 137 mmol/L (136-145); Total Protein 5.8 g/dL (5.7-8.2)
[2023-11-12] MEDS: ASPirin 325 MG TAB PO ONE (21:00)
[2023-11-12 21:25] VITALS: PULSE 95; RESP 12; O2SAT 95
[2023-11-12] MEDS ORDERED: DOCUSATE SOD 100 MG CAP PO PRN (21:45)
[2023-11-12] MEDS ORDERED: ACETAMINOPHEN 325 MG TAB PO PRN (21:45)
[2023-11-12 22:00] VITALS: PULSE 86; RESP 16; O2SAT 96
[2023-11-12 22:24] VITALS: BP 156/90; PULSE 86; RESP 20; O2SAT 96
[2023-11-12] MEDS: methylPREDNISolone SOD SUCC 40 MG/ML VL IV SCH (22:52)
[2023-11-12] MEDS: ATORVASTATIN 20 MG TAB PO SCH (22:52)
[2023-11-12] MEDS: HYDROcodone-ACET 5/325MG TAB PO PRN (22:52)
[2023-11-12] MEDS: SODIUM CHLOR 0.9% PF (SALINE LOCK) 10ML VIAL/SYR IV SCH (22:53)
[2023-11-13] VITALS (11 sets, daily range): BP systolic 131–150; BP diastolic 69–88; PULSE 72–90; RESP 16–18; TEMP 36.8; O2SAT 90–99
[2023-11-13] MEDS ORDERED: MORPHINE SULFATE INJ 2 MG/ml SYRG IV PRN
[2023-11-13] MEDS ORDERED: NITROGLYCERIN 0.4 MG SL TAB SL PRN
[2023-11-13] MEDS: ONDANSETRON HCL 4 MG/2 ML VIAL IV PRN (00:34)
[2023-11-13] MEDS: MORPHINE SULFATE INJ 2 MG/ml SYRG IV PRN (00:35)
[2023-11-13] MEDS: MORPHINE SULFATE INJ 2 MG/ml SYRG ONE (00:37)
[2023-11-13 03:51] LABS: Basophils # (auto) 0 10 ^3/uL (0-0.2); Basophils % (auto) 0.5 % (0.0-2.0); Eosinophils # (auto) 0 10 ^3/uL (0-0.8); Hematocrit 41.3 % (36.0-46.0); Hemoglobin 13.8 g/dL (12.2-16.2); Lymphocytes # (auto) 0.6 10 ^3/uL (0.4-5.4); Mean Corpuscular Hemoglobin 29.8 pg (28.0-32.0); Mean Corpuscular Hgb Conc. 33.4 g/dL (32.0-36.0); Mean Corpuscular Volume 89.4 fL (80.0-100.0); Monocytes # (auto) 0.2 10 ^3/uL (0-1.3); Monocytes % (auto) 2.1 % (0.0-12.0); Neutrophils # (auto) 6.4 10 ^3/uL (1.6-8.6); Neutrophils % (auto) 88.4 % (37.0-80.0); Nucleated Red Blood Cells % 0.1 %; Red Blood Cells 4.62 10^6/uL (4.0-5.20); White Blood Cell 7.2 10^3/uL (4.4-10.8)
[2023-11-13 04:10] LABS: Alanine Aminotransferase 11 U/L (7-40); Albumin 4.5 g/dL (3.2-4.8); Alkaline Phosphatase 100 U/L (46-116); Anion Gap 10 (5-15); Aspartate Aminotransferase 21 U/L (13-40); BUN/Creatinine Ratio 12.3 (10.0-20.0); Blood Urea Nitrogen 9 mg/dL (9-23); Calcium 9.5 mg/dL (8.7-10.4); Carbon Dioxide 24 mmol/L (20-30); Chloride 98 mmol/L (98-107); Glucose 159 mg/dL (74-106); Potassium 3.9 mmol/L (3.5-5.1)
[2023-11-13 04:11] LABS: Bilirubin, Total 0.5 mg/dL (0.2-1.0); Sodium 132 mmol/L (136-145); Total Protein 6.8 g/dL (5.7-8.2)
[2023-11-13] MEDS: HEPARIN DRIP/D5W 100UNITS/ML 250 ML IV SCH ×2 (05:10→12:40)
[2023-11-13] MEDS: LOSARTAN POTASSIUM 25 MG TAB PO SCH (09:06)
[2023-11-13] MEDS: ASPirin 81 mg TAB PO SCH (09:06)
[2023-11-13] MEDS: CARVEDILOL 12.5 MG TAB PO SCH (09:06)
[2023-11-13 09:26] LABS: LDL Cholesterol 61 mg/dL (< 100); Triglycerides 58 mg/dL (< 150)
[2023-11-13 09:28] LABS: Cholesterol 144 mg/dL (< 200); HDL Cholesterol 67 mg/dL (40-59)
[2023-11-13 12:14] LABS: INR 1.04 (0.9-1.15); Partial Thromboplastin Time 45.6 SEC (24.5-34.5); Prothrombin Time 10.9 sec (9.3-11.8)
[2023-11-13 12:36] LABS: Urine Bacteria NONE SEEN /hpf (None Seen); Urine Blood Negative /uL (Negative); Urine Clarity Clear (Clear); Urine Color Yellow (Yellow); Urine Protein, UAD TRACE (Negative); Urine Specific Gravity 1.021 (1.001-1.035); Urine Urobilinogen Normal (Negative); Urine WBC <1 /hpf (0 - 5); Urine pH 6.5 (5.0-8.0)
[2023-11-13] MEDS ORDERED: IOHEXOL 350 MG/ML 100ML IJ ONE (13:16)
[2023-11-13 20:42] LABS: INR 1.06 (0.9-1.15); Prothrombin Time 11.1 sec (9.3-11.8)
[2023-11-13 21:02] LABS: Partial Thromboplastin Time 92.1 SEC (24.5-34.5)
[2023-11-13] MEDS: ALBUTEROL SULF 2.5 MG/0.5ML(0.5%) NEB SOLN NEB PRN (21:58)
[2023-11-13] MEDS: IPRATROPIUM BROM 0.5 MG/2.5ML INH SOL NEB PRN (21:58)
[2023-11-13] MEDS: methylPREDNISolone SOD SUCC 40 MG/ML VL IV SCH (22:43)
[2023-11-14] VITALS (9 sets, daily range): BP systolic 99–156; BP diastolic 55–89; PULSE 63–86; RESP 16–20; TEMP 97.5–98.3; O2SAT 93–100
[2023-11-14 07:40] LABS: INR 1.06 (0.9-1.15); Partial Thromboplastin Time 49.3 SEC (24.5-34.5); Prothrombin Time 11.1 sec (9.3-11.8)
[2023-11-14] MEDS: HEPARIN DRIP/D5W 100UNITS/ML 250 ML IV SCH (09:53)
[2023-11-14] MEDS ORDERED: PRED10TA PO (11:57)
[2023-11-14] MEDS ORDERED: DOXY1CAP57 PO (11:57)
[2023-11-14] MEDS: ENOXAPARIN SOD 40 MG/0.4 ML SYRINGE SC SCH (12:00)
[2023-11-14] MEDS: LORazepam 0.5 MG TAB PO PRN (14:12)
[2023-11-14] MEDS: hydrALAZINE HCL 20 MG/ML VL IV PRN (15:28)
== END 2023-11-14 16:35 | disposition home or self-care (01) | DRG 189 ==
LOC: ER 18:56 → EDBD 18:56 → TELE-EAST 23:56 → TELE 23:56 → TELE-EAST 11-13 03:47
PROVIDERS: ADMIT Nurse Practitioner Family; ATTEND Internal Medicine
DX: J96.21 Acute and chronic respiratory failure with hypoxia (principal); I21.A1 Myocardial infarction type 2; J44.1 Chronic obstructive pulmonary disease with (acute) exacerbation; J98.11 Atelectasis; I16.0 Hypertensive urgency; E78.5 Hyperlipidemia, unspecified; I25.10 Atherosclerotic heart disease of native coronary artery without angina pectoris; E66.9 Obesity, unspecified; Z68.25 Body mass index [BMI] 25.0-25.9, adult; I25.2 Old myocardial infarction; Z91.81 History of falling; Z71.3 Dietary counseling and surveillance; Z82.49 Family history of ischemic heart disease and other diseases of the circulatory system; Z82.0 Family history of epilepsy and other diseases of the nervous system; Z82.5 Family history of asthma and other chronic lower respiratory diseases
CPT/HCPCS: 36415; 71045; 71275; 80053; 80061; 81001; 83036; 83880; 84443; 84484; 85025; 85379; 85610; 85730; 93005; 93306; 94640; 99291; G0378; J2405

== ENCOUNTER → 2024-02-23 | Outpatient (CLI) | payer MEDICAID ==
[~2024-02-23] MED LIST changes: +ARIP10TA8 PO; -ARIP1TAB5 PO; +DOXY1CAP57 PO; -HYDR25TA4 PO; +LOSA-533 PO; -LOSA25TA15 PO; +PRED10TA PO
== END | disposition home or self-care (01) ==
LOC: LAB 07:18
PROVIDERS: ATTEND Internal Medicine
DX: I25.10 Atherosclerotic heart disease of native coronary artery without angina pectoris (principal); J44.9 Chronic obstructive pulmonary disease, unspecified; R06.02 Shortness of breath; R55 Syncope and collapse
CPT/HCPCS: 36415; 82533; 83880; 84484

== ENCOUNTER 2024-03-20 12:16 | Inpatient (IN) | payer MEDICAID ==
[~2024-03-20] VITALS: Ht 157.5 cm; Wt 68.1 kg
[2024-03-20 13:17] LABS: Basophils # (auto) 0.1 10 ^3/uL (0-0.2); Basophils % (auto) 0.9 % (0.0-2.0); Eosinophils # (auto) 0.1 10 ^3/uL (0-0.8); Eosinophils % (auto) 1.6 % (0.0-7.0); Hematocrit 33.9 % (36.0-46.0); Hemoglobin 11.6 g/dL (12.2-16.2); Lymphocytes # (auto) 1.5 10 ^3/uL (0.4-5.4); Lymphocytes % (auto) 24.8 % (10.0-50.0); Mean Corpuscular Hgb Conc. 34.1 g/dL (32.0-36.0); Mean Corpuscular Volume 90.9 fL (80.0-100.0); Monocytes # (auto) 0.7 10 ^3/uL (0-1.3); Monocytes % (auto) 12.2 % (0.0-12.0); Neutrophils # (auto) 3.6 10 ^3/uL (1.6-8.6); Neutrophils % (auto) 60.5 % (37.0-80.0); Nucleated Red Blood Cells % 0.1 %; Red Blood Cells 3.72 10^6/uL (4.0-5.20); Red Cell Distribution Width 13.4 % (11.8-14.3)
[2024-03-20 13:30] LABS: BUN/Creatinine Ratio 28.4 (10.0-20.0); Blood Urea Nitrogen 25 mg/dL (9-23); Glucose 83 mg/dL (74-106)
[2024-03-20 13:32] LABS: Chloride 106 mmol/L (98-107); Potassium 4.3 mmol/L (3.5-5.1); Sodium 139 mmol/L (136-145)
[2024-03-20 13:35] LABS: Anion Gap 6 (5-15); Carbon Dioxide 27 mmol/L (20-30)
[2024-03-20 13:36] LABS: Calcium 9.4 mg/dL (8.7-10.4)
[2024-03-20] MEDS: SODIUM CHLORIDE 0.9% 1,000 ML IV ONE (13:54)
[2024-03-20] MEDS ORDERED: DOCUSATE SOD 100 MG CAP PO PRN (14:15)
[2024-03-20] MEDS ORDERED: ACETAMINOPHEN 325 MG TAB PO PRN (14:15)
[2024-03-20] MEDS ORDERED: ONDANSETRON HCL 4 MG/2 ML VIAL IV PRN (14:15)
[2024-03-20] MEDS ORDERED: MORPHINE SULFATE INJ 2 MG/ml SYRG IV PRN (14:45)
[2024-03-20] MEDS ORDERED: NITROGLYCERIN 0.4 MG SL TAB SL PRN (14:45)
[2024-03-20] MEDS: SODIUM CHLORIDE 0.9% 1,000 ML IV SCH (14:46)
[2024-03-20 17:11] LABS: Magnesium 1.6 mg/dL (1.6-2.6)
[2024-03-20] MEDS: HYDROcodone-ACET 5/325MG TAB PO PRN (20:22)
[2024-03-20] MEDS: ATORVASTATIN 20 MG TAB PO SCH (22:41)
[2024-03-20] MEDS: CARVEDILOL 3.125 MG TAB PO SCH (22:42)
[2024-03-20 23:37] VITALS: PULSE 72; RESP 18; O2SAT 96
[2024-03-20 23:50] VITALS: BP_SYST 130; BP_SYST 144; BP_SYST 153; BP_DIAS 71; BP_DIAS 78; BP_DIAS 80
[2024-03-21] VITALS (7 sets, daily range): BP systolic 100–166; BP diastolic 68–85; PULSE 73–90; RESP 16–20; TEMP 97.5–98.1; O2SAT 94–98
[2024-03-21 06:32] LABS: Basophils # (auto) 0 10 ^3/uL (0-0.2); Basophils % (auto) 0.7 % (0.0-2.0); Eosinophils # (auto) 0.1 10 ^3/uL (0-0.8); Eosinophils % (auto) 2.9 % (0.0-7.0); Hematocrit 35.2 % (36.0-46.0); Hemoglobin 11.9 g/dL (12.2-16.2); Lymphocytes # (auto) 1.2 10 ^3/uL (0.4-5.4); Lymphocytes % (auto) 25.6 % (10.0-50.0); Mean Corpuscular Hemoglobin 31.1 pg (28.0-32.0); Mean Corpuscular Hgb Conc. 33.9 g/dL (32.0-36.0); Mean Corpuscular Volume 91.8 fL (80.0-100.0); Monocytes # (auto) 0.6 10 ^3/uL (0-1.3); Monocytes % (auto) 11.5 % (0.0-12.0); Neutrophils # (auto) 2.9 10 ^3/uL (1.6-8.6); Neutrophils % (auto) 59.3 % (37.0-80.0); Red Blood Cells 3.84 10^6/uL (4.0-5.20); Red Cell Distribution Width 13.2 % (11.8-14.3); White Blood Cell 4.9 10^3/uL (4.4-10.8)
[2024-03-21 06:53] LABS: Alanine Aminotransferase 13 U/L (7-40); Albumin 3.6 g/dL (3.2-4.8); Alkaline Phosphatase 69 U/L (46-116); Anion Gap 6 (5-15); Aspartate Aminotransferase 11 U/L (13-40); BUN/Creatinine Ratio 16.7 (10.0-20.0); Bilirubin, Total 0.6 mg/dL (0.2-1.0); Blood Urea Nitrogen 12 mg/dL (9-23); Calcium 9.1 mg/dL (8.7-10.4); Carbon Dioxide 25 mmol/L (20-30); Chloride 108 mmol/L (98-107); Glucose 90 mg/dL (74-106); Sodium 139 mmol/L (136-145); Total Protein 5.7 g/dL (5.7-8.2)
[2024-03-21] MEDS: CARVEDILOL 12.5 MG TAB PO SCH (09:09)
[2024-03-21] MEDS: LOSARTAN POTASSIUM 25 MG TAB PO SCH (09:09)
[2024-03-21] MEDS: CITALOPRAM HYDROBR 20 MG TAB PO SCH (09:09)
[2024-03-21 09:10] LABS: Free T4 (Free Thyroxine) 0.98 ng/dL (0.89-1.76); T3 Total 0.93 ng/mL (0.60-1.81)
[2024-03-21 09:30] LABS: Urine Bacteria None Seen /hpf (None Seen); Urine WBC None Seen /hpf (0 - 5)
[2024-03-21 09:49] LABS: Amphetamine Screen, Urine Neg (NEGATIVE); Barbiturate Scree,Urine Neg (NEGATIVE); Benzodiazephine Screen, Urine Neg (NEGATIVE); Cannabinoid Screen, Urine Pos (NEGATIVE); Cocaine Screen, Urine Neg (NEGATIVE); Opiate Scree,Urine Neg (NEGATIVE); Phencyclidine Screen, Urine Neg (NEGATIVE)
[2024-03-21] MEDS ORDERED: ALBUTEROL SULF HFA 90MCG INH 200DOSE IN SCH (10:00)
[2024-03-21 10:11] LABS: Urine Blood Negative /uL (Negative); Urine Clarity Clear (Clear); Urine Color Colorless (Yellow); Urine Protein, UAD Negative (Negative); Urine Specific Gravity 1.009 (1.001-1.035); Urine Urobilinogen Normal (Negative)
[2024-03-21] MEDS: CYANOCOBALAMIN 500 MCG TAB PO ONE (12:19)
[2024-03-21] MEDS: PANTOPRAZOLE 40 MG TAB PO ONE (12:20)
[2024-03-21] MEDS: ERGOCALCIFEROL 50,000 UNIT(1.25MG) CAP PO SCH (12:20)
[2024-03-21] MEDS: MAGNESIUM SULFATE 1GM/100ML 100 ML IV ONE (12:20)
[2024-03-21] MEDS: hydrALAZINE HCL 20 MG/ML VL IV PRN (12:45)
[2024-03-21] MEDS: GABAPENTIN 100 MG CAP PO SCH (14:46)
[2024-03-21] MEDS ORDERED: ACET-1882 PO (15:05)
[2024-03-21] MEDS ORDERED: CYAN500T3 PO (15:05)
[2024-03-21] MEDS ORDERED: ERGO1CAP23 PO (15:05)
[2024-03-21] MEDS ORDERED: CARV-214 PO (15:05)
[2024-03-21] MEDS ORDERED: CARVEDILOL 3.125 MG TAB PO SCH (22:00)
[2024-03-21] MEDS ORDERED: GABAPENTIN 100 MG CAP PO SCH (22:00)
[2024-03-22] MEDS ORDERED: PANTOPRAZOLE 40 MG TAB PO SCH (06:00)
[2024-03-22] MEDS ORDERED: CYANOCOBALAMIN 500 MCG TAB PO SCH (10:00)
== END 2024-03-21 16:28 | disposition home or self-care (01) | DRG 312 ==
LOC: ER 12:16 → TELE 14:48 → TELE-CENTR 23:30
PROVIDERS: ADMIT Internal Medicine; ATTEND Internal Medicine
DX: I95.1 Orthostatic hypotension (principal); E86.0 Dehydration; I25.10 Atherosclerotic heart disease of native coronary artery without angina pectoris; J44.9 Chronic obstructive pulmonary disease, unspecified; F31.9 Bipolar disorder, unspecified; F41.9 Anxiety disorder, unspecified; G89.4 Chronic pain syndrome; Z96.643 Presence of artificial hip joint, bilateral; I10 Essential (primary) hypertension; E78.5 Hyperlipidemia, unspecified; Z79.2 Long term (current) use of antibiotics; Z79.899 Other long term (current) drug therapy; I25.2 Old myocardial infarction; Z90.49 Acquired absence of other specified parts of digestive tract; Z82.0 Family history of epilepsy and other diseases of the nervous system; Z82.5 Family history of asthma and other chronic lower respiratory diseases; Z82.49 Family history of ischemic heart disease and other diseases of the circulatory system; Z90.710 Acquired absence of both cervix and uterus
CPT/HCPCS: 36415; 70450; 73030; 73100; 73502; 80048; 80053; 80061; 80307; 81001; 82306; 82607; 83036; 83735; 84439; 84443; 84480; 84484; 85025; 93005; 93886; G0378

== ENCOUNTER → 2024-03-28 | Outpatient (CLI) | payer MEDICAID ==
[~2024-03-28] VITALS: Ht 157.5 cm; Wt 65.8 kg
[~2024-03-28] MED LIST changes: +ACET-1882 PO; -ARIP10TA8 PO; -CAR125T PO; +CARV-214 PO; +CYAN500T3 PO; -DOXY1CAP57 PO; +ERGO1CAP23 PO; -GABA-1308 PO; -OXYC10TA44 PO; -PRED10TA PO
[2024-03-28] MEDS: REGADENOSON 0.4 MG/5 ML SYRG IV ONE ×2 (10:55→10:59)
== END | disposition home or self-care (01) ==
LOC: XY 08:12
PROVIDERS: ATTEND Internal Medicine
DX: R06.02 Shortness of breath (principal)
CPT/HCPCS: 78452; 93017; A9500; J2785

== ENCOUNTER → 2024-11-27 | Outpatient (CLI) | payer MEDICAID ==
[2024-11-27 08:44] LABS: Alanine Aminotransferase 10 U/L (7-40); Alkaline Phosphatase 73 U/L (46-116); BUN/Creatinine Ratio 16.8 (10.0-20.0); Blood Urea Nitrogen 18 mg/dL (9-23); Calcium 9.8 mg/dL (8.7-10.4); Glucose 99 mg/dL (74-106); Potassium 4.1 mmol/L (3.5-5.1); Sodium 140 mmol/L (136-145)
[2024-11-27 08:45] LABS: Total Protein 6.6 g/dL (5.7-8.2)
[2024-11-27 08:46] LABS: Albumin 4.5 g/dL (3.2-4.8); Bilirubin, Total 0.4 mg/dL (0.2-1.0)
[2024-11-27 09:08] LABS: Aspartate Aminotransferase 12 U/L (13-40); Carbon Dioxide 31 mmol/L (20-31)
[2024-11-27 09:16] LABS: Anion Gap 5 (5-15); Chloride 104 mmol/L (98-107)
== END | disposition home or self-care (01) ==
LOC: LAB 07:50
PROVIDERS: ATTEND Internal Medicine
DX: J44.9 Chronic obstructive pulmonary disease, unspecified (principal); E78.5 Hyperlipidemia, unspecified; R73.03 Prediabetes; Z79.899 Other long term (current) drug therapy
CPT/HCPCS: 36415; 80053; 82306; 82607

== ENCOUNTER → 2024-12-04 | Outpatient (CLI) | payer MEDICAID ==
[2024-12-04 09:18] LABS: Alanine Aminotransferase 11 U/L (7-40); Albumin 4.6 g/dL (3.2-4.8); Alkaline Phosphatase 68 U/L (46-116); Anion Gap 5 (5-15); Aspartate Aminotransferase < 8 U/L (13-40); BUN/Creatinine Ratio 16.1 (10.0-20.0); Bilirubin, Total 0.4 mg/dL (0.2-1.0); Blood Urea Nitrogen 14 mg/dL (9-23); Calcium 9.9 mg/dL (8.7-10.4); Carbon Dioxide 33 mmol/L (20-31); Chloride 101 mmol/L (98-107); Glucose 128 mg/dL (74-106); Potassium 3.7 mmol/L (3.5-5.1); Sodium 139 mmol/L (136-145); Total Protein 6.7 g/dL (5.7-8.2)
[2024-12-04 10:39] LABS: Creatinine, Urine 65.32 mg/dL (30.0-125.0)
== END | disposition home or self-care (01) ==
LOC: LAB 08:31
PROVIDERS: ATTEND Internal Medicine
DX: I10 Essential (primary) hypertension (principal); J44.9 Chronic obstructive pulmonary disease, unspecified; R73.03 Prediabetes; R06.02 Shortness of breath
CPT/HCPCS: 36415; 80053; 82043; 82570; 83036

== ENCOUNTER → 2025-01-10 | Outpatient (CLI) | payer MEDICAID | END | disposition home or self-care (01) | LOC: LAB 11:46 | PROVIDERS: ATTEND Internal Medicine | DX: R73.03 Prediabetes (principal); R06.02 Shortness of breath | CPT/HCPCS: 36415; 84443 ==

== ENCOUNTER 2025-02-19 09:02 | Outpatient (CLI) | payer MEDICAID ==
[~2025-02-19] VITALS: Ht 157.5 cm; Wt 65.8 kg
[2025-02-19] MEDS: REGADENOSON 0.4 MG/5 ML SYRG IV ONE ×2 (10:40→10:41)
--- NOTE | 2025-02-26 11:55 | DVHSR ---
APPROVED REPORT Exam: Nuclear Stress Test Indication: Pre-Operative CV evaluation Stress Tech: Jackelyn Ridley Ht: 5 ft 2 in Wt: 145 lbs BSA: 1.67 m2 HR: 83 bpm BP: 135/79 mmHg BMI: 26.51 Rhythm: SEE BASELINE EKG Medical History Medical History: COPD, HTN, ASTHMA, NORMAL LHC 2020, ECHO 2023 EF65%, MOD LVH, MOD LV DIASTOLIC DYSFU NCTION Allergies: No known drug allergies Stress Test Details Stress Test: Pharmacologic stress testing performed using 0.4 mg of regadenoson per 5 mL given IV ov er 10 seconds. Reason for pharmacologic stress test: PRE OP CARDIAC CLEARANCE. HR Resting HR: 83 bpmMax Heart Rate (APMHR): 147.811729 bpm Max HR Achieved: 107 bpmTarget HR (85% APMHR): 124.583553 bpm % of APMHR: 72.79 Recovery HR: 95 bpm BP Resting BP: 135/79 mmHg Recovery BP: 149/79 mmHg ECG Resting ECG: SEE BASELINE EKG Clinical Reason for Termination: Completed protocol Nurse Comments Received patient from Nuclear Medicine. Patient is A&O x4 and on RA. FOR VS please refer back to st ress test assessment documentation. Patient is connected to cardiac cath rn. See cardio-neuro proce dural notes for addtional details. PIV flushes well. Reviewed POC and patient verbalizes understand ing and consents to test. Lexiscan stress test performed per protocol. dental technologist administered the Cardiolite. Pat ient tolerated well and vitals returned to baseline. Transferred to Nuclear Medicine via wheelchair with tech in stable condition. Stress ECG Conclusion no ischemia noted normal perfusion scan lvef >80% pvcs noted on stress portion NM EXAM: Myocardial Perfusion REST/STRESS Imaging Protocol: Rest Tc-99m/Stress Tc-99m 1 day Resting Data Rest SPECT myocardial perfusion imaging was performed in supine position 60 minutes following the int ravenous injection of 12.1 mCi of Tc-99m Sestamibi. Time of rest injection: 09:35 Date: 02/19/2025 Time of rest imagin:35 Date: 02/19/2025 Administration Route: IV Administration Site: Left Hand Pharmacologic Stress Pharmacologic stress test was performed by injecting Regadenoson 0.4 mg IV push followed by the intra venous injection of 33.2 mCi of Tc-99m Sestamibi. Time of stress injection: 10:40 Date: 02/19/2025 Time of stress imagin:40 Date: 02/19/2025 Administration Route: IV Administration Site: Left Hand Gated Stress SPECT was performed 60 minutes after stress injection. The images were gated to evaluate regional wall motion and calculate left ventricular ejection fracti on. Stress only was performed in the Supine position. Nuclear Conclusion Nuclear Findings: negative for ischemia no ischemia noted normal perfusion scan lvef >80% pvcs noted on stress portion
== END 2025-02-19 17:00 | disposition home or self-care (01) ==
LOC: XYW 09:02
PROVIDERS: ATTEND Internal Medicine
DX: Z01.810 Encounter for preprocedural cardiovascular examination (principal); N17.9 Acute kidney failure, unspecified; I10 Essential (primary) hypertension; J44.89 Other specified chronic obstructive pulmonary disease
CPT/HCPCS: 78452; 93017; A9500; J2785

== ENCOUNTER 2025-04-18 13:15 | Outpatient (CLI) | payer MEDICAID ==
[2025-04-18 13:52] LABS: Alanine Aminotransferase 13 U/L (7-40); Albumin 4.7 g/dL (3.2-4.8); Alkaline Phosphatase 64 U/L (46-116); Anion Gap 9 (5-15); BUN/Creatinine Ratio 17.0 (10.0-20.0); Blood Urea Nitrogen 15 mg/dL (9-23); Calcium 9.3 mg/dL (8.7-10.4); Carbon Dioxide 26 mmol/L (20-31); Chloride 99 mmol/L (98-107); Glucose 104 mg/dL (74-106); Potassium 4.0 mmol/L (3.5-5.1); Total Protein 6.3 g/dL (5.7-8.2)
[2025-04-18 13:53] LABS: Bilirubin, Total 0.3 mg/dL (0.2-1.0); Sodium 134 mmol/L (136-145)
== END 2025-04-18 17:00 | disposition home or self-care (01) ==
LOC: LAB 13:15
PROVIDERS: ATTEND Internal Medicine
DX: I10 Essential (primary) hypertension (principal); R73.03 Prediabetes; M54.50 Low back pain, unspecified
CPT/HCPCS: 36415; 80053; 82306; 85652; 86141

== ENCOUNTER 2025-06-10 11:51 | Inpatient (IN) | payer MEDICAID ==
[~2025-06-10] VITALS: Ht 160 cm; Wt 70.0 kg
[2025-06-10] VITALS (30 sets, daily range): BP systolic 85–128; BP diastolic 42–71; PULSE 64–92; RESP 10–21; TEMP 98.1–100; O2SAT 88–100
[2025-06-10] MEDS: SUCCINYLCHOLINE CHLORIDE 20 MG/ML 10ML VIAL IV ONE (11:58)
[2025-06-10] MEDS: ETOMIDATE (2MG/ML) 20ML VIAL IV ONE (11:58)
--- NOTE | 2025-06-10 12:08 | ED.PDOC ---
SOB-HPI HPI Comments 75 y/o F, BIBA, with PMHx of COPD, HTN, HLD, and CAD presents to the ED for CC of respiratory failure. EMS reports, patient is coming from home where neighbor called d/t finding patient unresponsive with notable expiratory wheezing. Per EMS, upon arrival to scene neighbor relayed patient did complain the night prior of symptoms of malaise. En route to the ED, EMS gave Albuterol Tbx and Atrovent with no change in symptoms or status; EMS attempted CPAP however, patient began to deteriorate. Upon arrival to the ED, patient was transferred to ED bed 06, care is ongoing at this time. Time Seen by MD: 12:00 Primary Care Provider: KIANNA Reviewed notes: Nurses Notes Information Source: Emergency Med Personnel Mode of Arrival: EMS Severity: Moderate Timing: Minutes Duration: Since onset Context: At Rest PE Risk Factors: None History of: COPD Modifying Factors: Nothing Associated Signs and Symptoms: None Past Medical History PAST MEDICAL HISTORY: CAD, COPD, High Lipids, HTN Surgical History: Denies all surgeries MAINFRAME SOFTWARE DEVELOPER History: No Pertinent MAINFRAME SOFTWARE DEVELOPER History Family History Family History: Unobtainable Social History Smoker: Non-Smoker Alcohol: Denies ETOH Use Drugs: Denies Drug Use Lives In: Home Unable to Obtain due to: Medical Urgency Physical Exam General Appearance: Severe Distress HEENT: Pale Conjuntivae (L), Pale Conjuntivae (R), Pharynx Normal, TMs Normal Neck: Full Range of Motion, Non-Tender, Normal, Normal Inspection Respiratory: Chest Non-Tender, Decreased Breath Sounds, Respiratory Distress Cardiovascular: No Edema, No JVD, No Murmur, No Gallop, Normal Peripheral Pulses, Regular Rate/Rhythm Breast Exam: Deferred Gastrointestinal: No Organomegaly, Non Tender, No Pulsatile Mass, Normal Bowel Sounds, Soft Genitalia: Deferred Pelvic: Deferred Rectal: Deferred Extremities: No calf tenderness, Normal capillary refill, Normal inspection, Normal range of motion, Non-tender, No pedal edema Musculoskeletal : Apperance: Normal Neurologic: Motor Weakness, No Sensory Deficits, Other (The patient is lethargic) Cerebellar Function: Normal, Unable to Test Reflexes: Normal Skin: Dry, Pallor, Warm Lymphatic: No Adenopathy EKG EKG : Pulse Rate (adult): 74 Ezel: Normal Cardiac Rhythm: NSR ST: Nonsp Was a procedure done? Was a procedure done?: Yes Sedation Sedation?: No Central Line Recorder of insertion practice: Otr Owner Operator Truck Driver () Occupation of counter attendant: Attending Physician Indication: Inability to obtain IV Room prepared for procedure: Yes Otr Owner Operator Truck Driver performed hand hygien: Yes Maximal sterile barrier precau: Mask/Eye shield, Sterile gown, Cap, Sterlie gloves, Large sterlie drape Skin Preparation: Alcohol Skin preparation completely dr: Yes Insertion site: Right, Internal jugular Central line catheter type: Mor-qbjvjhec-xsc dialysis Number of lumens: 3 Central line exchanged over a: Yes Antiseptic ointment applied to: Yes Post Assessment: Chest X-Ray Informed consent obtained: Yes Risks/benefits/alt described: Yes Intubation Indication: Respiratory Insufficiency Pretreated with: Sedation Medicated with: Succinylcholine (80mg), Other (etomidate 20mg) Intubation Approach: Orotracheal Intubation size: cm (8.0 ETT) Informed consent obtained: Yes Risks/benefits/alt described: Yes Differential Dx Differential Diagnosis: COPD, Respiratory Distress X-Ray, Labs, Meds, VS Vital Signs Date Time Temp Pulse Resp B/P (MAP) Pulse Ox O2 Delivery O2 Flow Rate FiO2 06/10/25 16:00 99.3 76 20 126/71 (89) 96 99.3 06/10/25 16:00 76 06/10/25 16:00 126/71 06/10/25 15:25 98.1 64 18 121/56 100 60 98.1 06/10/25 14:45 98.1 71 20 123/77 (92) 96 98.1 06/10/25 14:30 98.1 69 20 117/70 (86) 95 98.1 06/10/25 14:15 98.1 69 20 116/77 (90) 100 98.1 06/10/25 14:00 98.1 69 20 101/81 (88) 100 98.1 06/10/25 13:45 98.1 66 18 121/56 (77) 100 98.1 06/10/25 13:43 64 121/56 (77) 100 60 06/10/25 13:30 98.1 66 18 125/59 (81) 100 98.1 06/10/25 13:15 97.9 65 18 117/63 (81) 100 97.9 06/10/25 13:00 107/49 06/10/25 13:00 97.7 67 18 107/49 (68) 100 97.7 06/10/25 12:44 97.7 71 18 132/68 (89) 98 97.7 06/10/25 12:31 74 06/10/25 12:30 132/68 06/10/25 12:23 73 06/10/25 12:02 98.2 51 7 139/90 95 98.2 06/10/25 11:58 78 114/57 (76) 100 100 06/10/25 11:56 76 10 88 Mechanical Ventilator+ 100 100 Lab Test 06/10/25 15:14 06/10/25 13:38 06/10/25 13:10 06/10/25 12:42 Range/Units Troponin I High Sensitivity 12 8 </=34 ng/L Blood Gas Specimen Type Arterial Blood Gas Sample Site Right radial Blood Gas Patient Temperature 37.0 Arterial Blood Date Drawn [id number] Arterial Blood pH 7.386 7.350-7.450 Arterial Blood Partial Pressure CO2 53.6 H 32.0-45.0 mmHg Arterial Blood Partial Pressure O2 284.6 H 83.0-108.0 mmHg Arterial Blood HCO3 31.4 H 21.0-28.0 mmol/L Arterial Blood Oxygen Saturation 99.5 H 94.0-98.0 % Arterial Blood Base Excess 5.1 H -2.0-3.0 mmol/L Arterial Blood Oxyhemoglobin 98.0 94.0-98.0 % Arterial Blood Carboxyhemoglobin 1.3 0.5-1.5 % Arterial Blood Methemoglobin 0.2 0.0-1.5 % Saad Test Modified Blood Gas Total Hemoglobin 12.90 12.0-16.0 g/dL Blood Gas Set Respiration Rate 18.0 Blood Gas Modality Vent - ac FiO2 % 100.0 Blood Gas Tidal Volume 450.0 Blood Gas PEEP or CPAP 5.0 Influenza Type A Antigen Negative Negative Influenza Type B Antigen Negative Negative SARS-CoV-2 Antigen (Rapid) Negative NEGATIVE Test 06/10/25 12:27 06/10/25 12:16 Range/Units Urine Color Light-yellow Yellow Urine Clarity Clear Clear Urine pH 6.0 5.0-9.0 Urine Specific [place] 1.015 1.001-1.035 Urine Protein Negative Negative Urine Ketones Negative Negative Urine Blood Negative Negative /uL Urine Nitrite Negative Negative Urine Bilirubin Negative Negative Urine Urobilinogen Normal Negative mg/dL Urine Leukocyte Esterase Negative Negative /uL Urine RBC None seen 0 - 4 /hpf Urine Microscopic WBC 1 0-5 /HPF Urine Squamous Epithelial Cells Few <5 /hpf Urine Bacteria None seen None Seen /hpf Urine Glucose Normal Normal mg/dL White Blood Count 6.0 4.4-10.8 10^3/uL Red Blood Count 4.19 4.0-5.20 10^6/uL Hemoglobin 13.1 12.2-16.2 g/dL Hematocrit 39.4 36.0-46.0 % Mean Corpuscular Volume 94.1 80.0-100.0 fL Mean Corpuscular Hemoglobin 31.3 28.0-32.0 pg Mean Corpuscular Hemoglobin Concent 33.2 32.0-36.0 g/dL Red Cell Distribution Width 14.6 H 11.8-14.3 % Platelet Count 236 140-450 10^3/uL Mean Platelet Volume 6.9 6.9-10.8 fL Neutrophils (%) (Auto) 51.5 37.0-80.0 % Lymphocytes (%) (Auto) 29.5 10.0-50.0 % Monocytes (%) (Auto) 12.3 H 0.0-12.0 % Eosinophils (%) (Auto) 5.7 0.0-7.0 % Basophils (%) (Auto) 1.0 0.0-2.0 % Neutrophils # (Auto) 3.1 1.6-8.6 10 ^3/uL Lymphocytes # (Auto) 1.8 0.4-5.4 10 ^3/uL Monocytes # (Auto) 0.7 0-1.3 10 ^3/uL Eosinophils # (Auto) 0.3 0-0.8 10 ^3/uL Basophils # (Auto) 0.1 0-0.2 10 ^3/uL Nucleated Red Blood Cells 0.2 % D-Dimer, Quantitative 0.32 0.0-0.49 mg/L FEU Sodium Level 136 136-145 mmol/L Potassium Level 5.9 *H 3.5-5.1 mmol/L Chloride Level 100 98-107 mmol/L Carbon Dioxide Level 28 20-31 mmol/L Anion Gap 8 5-15 Blood Urea Nitrogen 15 9-23 mg/dL Creatinine 1.63 H 0.550-1.02 mg/dL Glomerular Filtration Rate Calc 33 >90 mL/min BUN/Creatinine Ratio 9.2 L 10.0-20.0 Serum Glucose 94 74-106 mg/dL Lactic Acid Level 1.2 0.4-2.0 mmol/L Calcium Level 9.1 8.7-10.4 mg/dL Troponin I High Sensitivity 9 </=34 ng/L B-Type Natriuretic Peptide 100.50 0-100 pg/mL Current Medications Medications (Trade) Dose Ordered Sig/Linda Route Start Time Stop Time Status Last Admin Methylprednisolone Sodium Succinate (Solu Medrol) 125 mg ONCE ONCE IV 06/10/25 12:00 06/10/25 12:02 DC 06/10/25 13:00 Etomidate 20 mg ONCE ONCE IV 06/10/25 12:15 06/10/25 12:16 DC 06/10/25 11:58 Succinylcholine Chloride (Quelicin) 80 mg ONCE ONCE IV 06/10/25 12:15 06/10/25 12:16 DC 06/10/25 11:58 Midazolam HCl 50 ml @ 1 mls/hr Q24H IV 06/10/25 12:15 06/10/25 12:30 Fentanyl Citrate 250 ml @ 2.5 mls/hr Q24H IV 06/10/25 15:45 06/10/25 16:00 CXR: IMPRESSION: 1. Endotracheal tube 1.8 cm above the marlene consider withdrawal 1-2 cm. 2. Enteric tube in the stomach At this time, the patient had the endotracheal tube withdrawn. The patient was immediately intubated upon arrival. The procedure note is in place. We did use etomidate 20 mg IV push and succinylcholine 80 mg IV push For sedation we did use Versed and fentanyl. The patient's BNP is 100.5 The patient's chemistry panel shows a creatinine of 1.63 The patient is potassium is 5.9 The patient is given sodium bicarbonate and calcium to address the hyperkalemia The urine test is negative A Pike catheter was placed after intubation An NG-tube was also placed. We will continue to monitor the patient's respiratory status with serial ABGs. The patient will be admitted to the ICU Critical care time involved monitor the patient's respiratory status as well as bedside management interpretation of labs and imaging Images Reviewed?: Images reviewed and evaluated by me Time of 1ST Reevaluation: 12:30 Reevaluation 1ST: Unchanged Time of 2ND Reevaluation: 17:25 Reevaluation 2ND: Improved Patient Education/Counseling: Pt Unresponsive Family Education/Counseling: No Family Present SEPSIS Sepsis Screen Physician Orders Chest Portable (06/10/25 11:59) Heplock Iv (06/10/25 11:59) Pulse Oximetry (06/10/25 11:59) Casting Machine Control Board Operator (06/10/25 11:59) Blood Pressure (06/10/25 11:59) Electrocardigram (06/10/25 11:59) Blood Culture (06/10/25 11:59) Ngt/Ogt (06/10/25 ) Pike Catheters (06/10/25 ) Electrocardigram (06/10/25 12:59) Electrocardigram (06/10/25 14:59) Ventilator Setup (06/10/25 12:00) Respiratory Culture W/ Gs (06/10/25 12:02) Abg W/ Co-Ox (06/10/25 12:02) Midazolam Drip 50 Mg/50ml (Versed Drip 5 (06/10/25 12:15) Rass Sedation Scale Q1HR (06/10/25 12:15) Norepinephrine 8 Mg/250ml Kit (Levophed) (06/10/25 13:15) Communication Order (06/10/25 13:00) Ventilator Orders (06/10/25 13:43) Chest Xray 1 View (06/10/25 14:17) Fentanyl Drip 2500mcg/250mlns (06/10/25 15:45) Admit (06/10/25 16:02) Vital Signs Date Time Temp Pulse Resp B/P (MAP) Pulse Ox O2 Delivery O2 Flow Rate FiO2 06/10/25 16:00 99.3 76 20 126/71 (89) 96 99.3 06/10/25 16:00 76 06/10/25 16:00 126/71 06/10/25 15:25 98.1 64 18 121/56 100 60 98.1 06/10/25 14:45 98.1 71 20 123/77 (92) 96 98.1 06/10/25 14:30 98.1 69 20 117/70 (86) 95 98.1 06/10/25 14:15 98.1 69 20 116/77 (90) 100 98.1 06/10/25 14:00 98.1 69 20 101/81 (88) 100 98.1 06/10/25 13:45 98.1 66 18 121/56 (77) 100 98.1 06/10/25 13:43 64 121/56 (77) 100 60 06/10/25 13:30 98.1 66 18 125/59 (81) 100 98.1 06/10/25 13:15 97.9 65 18 117/63 (81) 100 97.9 06/10/25 13:00 107/49 06/10/25 13:00 97.7 67 18 107/49 (68) 100 97.7 06/10/25 12:44 97.7 71 18 132/68 (89) 98 97.7 06/10/25 12:31 74 06/10/25 12:30 132/68 06/10/25 12:23 73 06/10/25 12:02 98.2 51 7 139/90 95 98.2 06/10/25 11:58 78 114/57 (76) 100 100 06/10/25 11:56 76 10 88 Mechanical Ventilator+ 100 100 Laboratory Tests Test 06/10/25 12:16 Lactic Acid Level 1.2 mmol/L (0.4-2.0) White Blood Count 6.0 10^3/uL (4.4-10.8) Medications Medications Dose Ordered Sig/Linda Route Start Time Stop Time Status Last Admin Dose Admin Etomidate 20 mg ONCE ONCE IV 06/10/25 12:15 06/10/25 12:16 DC 06/10/25 11:58 Fentanyl Citrate 250 ml @ 2.5 mls/hr Q24H IV 06/10/25 15:45 06/10/25 16:00 Methylprednisolone Sodium Succinate 125 mg ONCE ONCE IV 06/10/25 12:00 06/10/25 12:02 DC 06/10/25 13:00 Midazolam HCl 50 ml @ 1 mls/hr Q24H IV 06/10/25 12:15 06/10/25 12:30 Succinylcholine Chloride 80 mg ONCE ONCE IV 06/10/25 12:15 10/12/25 12:16 DC 06/10/25 11:58 Departure 1 Departure Time of Disposition: 17:25 Impression: Primary Impression: Acute respiratory failure Qualified Codes: J96.01 - Acute respiratory failure with hypoxia Additional Impression: Hyperkalemia Disposition: 09 ADMITTED INPATIENT Admit to: ICU Condition: Fair Critical Care Note Critical Care Time?: Yes (55 min-critical care time only) Stability Stability form required: Yes Unstable for transfer: ICU, CCU, PCU, CHRIS (Intensive VS monitoring), May require CPR (possible rapid decline), ED Physician Assesment (Clinical assesment) Heart Score Heart Score: Heart Score Response (Comments) Value History N/A 0 EKG N/A 0 Age N/A 0 Risk Factors N/A 0 Troponin N/A 0 Total 0 I personally scribed for DAKOTA OTERO MD ([email or web address]) on 06/10/25 at 12:08. Electronically submitted by Reema Langford ([email or web address]). I personally scribed for DAKOTA OTERO MD ([email or web address]) on 06/10/25 at 13:56. Electronically submitted by Reema Langford ([email or web address]). I personally scribed for DAKOTA OTERO MD ([email or web address]) on 06/10/25 at 15:17. Electronically submitted by Reema Langford ([email or web address]). DAKOTA OTERO MD Jun 10, 2025 12:08
[2025-06-10 12:27] LABS: Hematocrit 39.4 % (36.0-46.0); Hemoglobin 13.1 g/dL (12.2-16.2); Mean Corpuscular Hemoglobin 31.3 pg (28.0-32.0); Mean Corpuscular Volume 94.1 fL (80.0-100.0); Nucleated Red Blood Cells % 0.2 %
[2025-06-10] MEDS: MIDAZOLAM DRIP 50 mg/50mL 50 ML IV SCH (12:30)
[2025-06-10 12:42] LABS: Chloride 100 mmol/L (98-107)
[2025-06-10 12:43] LABS: Anion Gap 8 (5-15); Calcium 9.1 mg/dL (8.7-10.4); Carbon Dioxide 28 mmol/L (20-31)
[2025-06-10 12:48] LABS: BUN/Creatinine Ratio 9.2 (10.0-20.0); Blood Urea Nitrogen 15 mg/dL (9-23); Glucose 94 mg/dL (74-106)
[2025-06-10] MEDS: MIDAZOLAM DRIP 50 mg/50mL 50 ML IV ONE (12:51)
[2025-06-10 12:52] LABS: Sodium 136 mmol/L (136-145)
[2025-06-10 12:54] LABS: Urine Protein, UAD Negative (Negative)
--- NOTE | 2025-06-10 12:54 | DVH ---
CHEST RADIOGRAPH Indication: sob Technique: Single frontal view of the chest was obtained Comparison: XY CHEST PORTABLE on DOS: 11/12/23, XY CHEST PORTABLE on DOS: 09/30/23, XY CHEST PORTABLE on DOS: 11/03/22 FINDINGS: Lines and Tubes: Endotracheal tube 1.8 cm above the marlene. Lungs: No focal consolidation. Pleura: No effusion. No pneumothorax. Cardiomediastinal contours: Unremarkable Bones: Total right shoulder prosthesis is in place. IMPRESSION: 1. Endotracheal tube 1.8 cm above the marlene consider withdrawal 1-2 cm. 2. Enteric tube in the stomach
[2025-06-10 12:55] LABS: Potassium 5.9 mmol/L (3.5-5.1)
[2025-06-10] MEDS: methylPREDNISolone SOD SUCC 125 MG/2 ML VL IV ONE (13:00)
[2025-06-10 13:56] LABS: COVID19 ANTIGEN SOFIA FIA NEGATIVE (NEGATIVE)
[2025-06-10 14:03] LABS: Base Excess 5.1 mmol/L (-2.0-3.0)
--- NOTE | 2025-06-10 14:52 | DVH ---
CHEST RADIOGRAPH Indication: central line placement Technique: Single frontal view of the chest was obtained Comparison: XY CHEST PORTABLE on DOS: 06/10/25, XY CHEST PORTABLE on DOS: 11/12/23, XY CHEST PORTABLE on DOS: 09/30/23 FINDINGS: Lines and Tubes: Endotracheal tube 1.9 cm above the marlene. Right internal jugular catheter in place. The tip appears appears to be in the right atrium. Enteric tube in place with the tip out of the fi eld of view below the left diaphragm most likely in the stomach. Lungs: No focal consolidation. Pleura: No effusion. No pneumothorax. Cardiomediastinal contours: Unremarkable Bones: No acute osseous abnormality. IMPRESSION: 1. Endotracheal tube 1.9 cm above the marlene. 2. Right internal jugular catheter tip appears to be in the right atrium. 3. Enteric tube not visualized but below the left diaphragm is most likely in the stomach. 4. Right shoulder prosthesis in place
[2025-06-10] MEDS: fentaNYL Drip 2500mCg/250mlNS 250 ML IV SCH (16:00)
[2025-06-10] MEDS: fentaNYL Drip 2500mCg/250mlNS 250 ML IV ONE (16:02)
--- NOTE | 2025-06-10 16:34 | DVHHP2 ---
History of Present Illness History of Present Illness Patient is 75-year-old female with past medical history of Chronic obstructive pulmonary disease, hyperlipidemia, hypertension brought to the hospital by EMS for hypercapnic respiratory failure. As per patient's friend, she was feeling sick for past few days, recent outpatient office visit primary care was done for urinary tract infection, was prescribed antibiotics and sent home. Yesterday one of the friend went to patient's house, patient was found to have unresponsive, not able expiratory wheezing. EMS was called and brought to the hospital. As per EMS patient was given trial of CPAP, however patient continued to deteriorate leads to intubation in emergency department of [facility]. After the intubation, patient does not require any vasopressor, was given IV steroids of 125 mg Solu-Medrol, given hyperkalemia , given albuterol inhalation and IV Lasix. Given critical nature of the use, patient will be t ransferred to ICU. Past medical history: Hypertension, hyperlipidemia, Chronic obstructive pulmonary disease exacerbation Past surgical history: No pertinent surgical history Allergic: None Personal history: No history of smoking, alcohol use or any recreational drug use. Patient lives in home. Home medication: Albuterol 90 mcg two puffs daily, atorvastatin 40 mg p.o. daily, bupropion 150 mg p.o. daily, Coreg 3.125 mg p.o. b.i.d., citalopram 20 mg p.o. daily, vitamin B12, vitamin-D, hydroxyzine p.r.n., Ativan 0.5 mg p.r.n., losartan 25 mg p.o. daily, methocarbamol 500 mg p.o. b.i.d.. All the information obtained from EMR, nurse, patient's family member, patient's sister. Review of Systems Review of Systems Review of systems can not be obtained given patient is intubated and sedated Allergies: Coded Allergies: NO KNOWN ALLERGIES (Unverified , 03/28/24) Medications Current Medications Medications Dose Ordered Sig/Linda Route Start Time Stop Time Status Last Admin Dose Admin Midazolam HCl 50 ml @ 1 mls/hr Q24H IV 06/10/25 12:15 06/10/25 12:30 1 MLS/HR Norepinephrine Bitartrate 250 ml @ 3.75 mls/hr Q24H IV 06/10/25 13:15 Fentanyl Citrate 250 ml @ 2.5 mls/hr Q24H IV 06/10/25 15:45 06/10/25 16:00 2.5 MLS/HR Methylprednisolone Sodium Succinate 40 mg BID IV 06/11/25 10:00 UNV Cefepime HCl 50 ml @ 12.5 mls/hr Q12HR IV 06/10/25 22:00 UNV Albuterol 2.5 mg Q6HR NEB 06/10/25 18:00 UNV Ipratropium [place] 0.5 mg Q6HR NEB 06/10/25 18:00 UNV Pantoprazole Sodium 40 mg DAILY IV 06/11/25 10:00 UNV Heparin Sodium (Porcine) 5,000 units Q12HR SC 06/10/25 22:00 UNV Furosemide 20 mg DAILY IV 06/11/25 10:00 UNV Exam Vital Signs Vital Signs Date Time Temp Pulse Resp B/P (MAP) Pulse Ox O2 Delivery O2 Flow Rate FiO2 06/10/25 16:00 126/71 06/10/25 15:25 98.1 64 18 100 60 98.1 06/10/25 11:56 Mechanical Ventilator+ Exam General Appearance: Intubated, sedated. Head Exam: Normal inspection Neck Exam: Normal inspection. Non-tender. Normal alignment Pulmonary/Respiratory: Chest non-tender. Bilateral expiratory wheezing, no crackles. Cardiovascular/Chest: Regular rate and rhythm. No murmurs. No JVD. Peripheral Pulses: 2+ Radial (R). 2+ Radial (L). 2+ Pedal (R). 2+ Pedal (L) Abdominal Exam: Normal bowel sounds. Soft. Nontender. No hepatospenomegaly. No masses Ankle Exam: Negative ankle edema Lower extremities: 1+ bilateral pedal edema Neuro/Mental Status: Sedated. Labs/Xrays Labs Test 06/10/25 15:14 06/10/25 13:38 06/10/25 12:42 06/10/25 12:27 Range/Units Troponin I High Sensitivity 12 </=34 ng/L Blood Gas Specimen Type Arterial Blood Gas Sample Site Right radial Blood Gas Patient Temperature 37.0 Arterial Blood Date Drawn [id number] Arterial Blood pH 7.386 7.350-7.450 Arterial Blood Partial Pressure CO2 53.6 H 32.0-45.0 mmHg Arterial Blood Partial Pressure O2 284.6 H 83.0-108.0 mmHg Arterial Blood HCO3 31.4 H 21.0-28.0 mmol/L Arterial Blood Oxygen Saturation 99.5 H 94.0-98.0 % Arterial Blood Base Excess 5.1 H -2.0-3.0 mmol/L Arterial Blood Oxyhemoglobin 98.0 94.0-98.0 % Arterial Blood Carboxyhemoglobin 1.3 0.5-1.5 % Arterial Blood Methemoglobin 0.2 0.0-1.5 % Saad Test Modified Blood Gas Total Hemoglobin 12.90 12.0-16.0 g/dL Blood Gas Set Respiration Rate 18.0 Blood Gas Modality Vent - ac FiO2 % 100.0 Blood Gas Tidal Volume 450.0 Blood Gas PEEP or CPAP 5.0 Influenza Type A Antigen Negative Negative Influenza Type B Antigen Negative Negative SARS-CoV-2 Antigen (Rapid) Negative NEGATIVE Urine Color Light-yellow Yellow Urine Clarity Clear Clear Urine pH 6.0 5.0-9.0 Urine Specific [place] 1.015 1.001-1.035 Urine Protein Negative Negative Urine Ketones Negative Negative Urine Blood Negative Negative /uL Urine Nitrite Negative Negative Urine Bilirubin Negative Negative Urine Urobilinogen Normal Negative mg/dL Urine Leukocyte Esterase Negative Negative /uL Urine RBC None seen 0 - 4 /hpf Urine Microscopic WBC 1 0-5 /HPF Urine Squamous Epithelial Cells Few <5 /hpf Urine Bacteria None seen None Seen /hpf Urine Glucose Normal Normal mg/dL Test 06/10/25 12:16 Range/Units White Blood Count 6.0 4.4-10.8 10^3/uL Red Blood Count 4.19 4.0-5.20 10^6/uL Hemoglobin 13.1 12.2-16.2 g/dL Hematocrit 39.4 36.0-46.0 % Mean Corpuscular Volume 94.1 80.0-100.0 fL Mean Corpuscular Hemoglobin 31.3 28.0-32.0 pg Mean Corpuscular Hemoglobin Concent 33.2 32.0-36.0 g/dL Red Cell Distribution Width 14.6 H 11.8-14.3 % Platelet Count 236 140-450 10^3/uL Mean Platelet Volume 6.9 6.9-10.8 fL Neutrophils (%) (Auto) 51.5 37.0-80.0 % Lymphocytes (%) (Auto) 29.5 10.0-50.0 % Monocytes (%) (Auto) 12.3 H 0.0-12.0 % Eosinophils (%) (Auto) 5.7 0.0-7.0 % Basophils (%) (Auto) 1.0 0.0-2.0 % Neutrophils # (Auto) 3.1 1.6-8.6 10 ^3/uL Lymphocytes # (Auto) 1.8 0.4-5.4 10 ^3/uL Monocytes # (Auto) 0.7 0-1.3 10 ^3/uL Eosinophils # (Auto) 0.3 0-0.8 10 ^3/uL Basophils # (Auto) 0.1 0-0.2 10 ^3/uL Nucleated Red Blood Cells 0.2 % D-Dimer, Quantitative 0.32 0.0-0.49 mg/L FEU Sodium Level 136 136-145 mmol/L Potassium Level 5.9 *H 3.5-5.1 mmol/L Chloride Level 100 98-107 mmol/L Carbon Dioxide Level 28 20-31 mmol/L Anion Gap 8 5-15 Blood Urea Nitrogen 15 9-23 mg/dL Creatinine 1.63 H 0.550-1.02 mg/dL Glomerular Filtration Rate Calc 33 >90 mL/min BUN/Creatinine Ratio 9.2 L 10.0-20.0 Serum Glucose 94 74-106 mg/dL Lactic Acid Level 1.2 0.4-2.0 mmol/L Calcium Level 9.1 8.7-10.4 mg/dL B-Type Natriuretic Peptide 100.50 0-100 pg/mL SEPSIS Sepsis Screen Date sepsis recognized/suspect: Jun 10, 2025 Time Sepsis recognized/suspect: 1202 Recent Procedure: No On Antibiotic Therapy: No Respiratory Rate >20: No Heart Rate >90: No Temp<36 C (96.8 F) or >38.3 C: No SBP <90 or MAP <65 mmHG: No New Acute Mental Status Change: No Is the patient on CPAP, BIPAP,: No Physician Orders Chest Portable (06/10/25 11:59) Heplock Iv (06/10/25 11:59) Pulse Oximetry (06/10/25 11:59) Airplane Mechanic Apprentice (06/10/25 11:59) Blood Pressure (06/10/25 11:59) Electrocardigram (06/10/25 11:59) Blood Culture (06/10/25 11:59) Ngt/Ogt (06/10/25 ) Pike Catheters (06/10/25 ) Electrocardigram (06/10/25 12:59) Electrocardigram (06/10/25 14:59) Ventilator Setup (06/10/25 12:00) Respiratory Culture W/ Gs (06/10/25 12:02) Abg W/ Co-Ox (06/10/25 12:02) Midazolam Drip 50 Mg/50ml (Versed Drip 5 (06/10/25 12:15) Rass Sedation Scale Q1HR (06/10/25 12:15) Norepinephrine 8 Mg/250ml Kit (Levophed) (06/10/25 13:15) Communication Order (06/10/25 13:00) Ventilator Orders (06/10/25 13:43) Chest Xray 1 View (06/10/25 14:17) Fentanyl Drip 2500mcg/250mlns (06/10/25 15:45) Admit (06/10/25 16:02) Abg W/ Co-Ox (06/10/25 16:03) Methylprednisolone Sod Succ (Solu Medrol (06/11/25 10:00) Albuterol Medneb (Ventolin Medneb) (06/10/25 16:15) Furosemide Injection (Lasix Injection) (06/10/25 16:15) Cefepime 1gm/50ml (Maxipime 1gm/50ml) (06/10/25 16:15) Cefepime 1gm/50ml (Maxipime 1gm/50ml) (06/10/25 22:00) Albuterol Medneb (Ventolin Medneb) (06/10/25 18:00) Ipratropium Medneb (Atrovent Medneb) (06/10/25 18:00) Pantoprazole (Protonix) (06/10/25 16:15) Pantoprazole (Protonix) (06/11/25 10:00) Heparin Sodium (Porcine) (06/10/25 22:00) Furosemide Injection (Lasix Injection) (06/11/25 10:00) Basic Metabolic Panel (06/11/25 04:00) Complete Blood Count (06/11/25 04:00) Magnesium (06/11/25 04:00) Abg W/ Co-Ox (06/11/25 04:00) Basic Metabolic Panel (06/10/25 18:00) Vital Signs Date Time Temp Pulse Resp B/P (MAP) Pulse Ox O2 Delivery O2 Flow Rate FiO2 06/10/25 16:00 126/71 06/10/25 15:25 98.1 64 18 121/56 100 60 98.1 06/10/25 14:45 98.1 71 20 123/77 (92) 96 98.1 06/10/25 14:30 98.1 69 20 117/70 (86) 95 98.1 06/10/25 14:15 98.1 69 20 116/77 (90) 100 98.1 06/10/25 14:00 98.1 69 20 101/81 (88) 100 98.1 06/10/25 13:45 98.1 66 18 121/56 (77) 100 98.1 06/10/25 13:43 64 121/56 (77) 100 60 06/10/25 13:30 98.1 66 18 125/59 (81) 100 98.1 06/10/25 13:15 97.9 65 18 117/63 (81) 100 97.9 06/10/25 13:00 107/49 06/10/25 13:00 97.7 67 18 107/49 (68) 100 97.7 06/10/25 12:44 97.7 71 18 132/68 (89) 98 97.7 06/10/25 12:31 74 06/10/25 12:30 132/68 06/10/25 12:02 98.2 51 7 139/90 95 98.2 06/10/25 11:58 78 114/57 (76) 100 100 06/10/25 11:56 76 10 88 Mechanical Ventilator+ 100 100 Laboratory Tests Test 06/10/25 12:16 Lactic Acid Level 1.2 mmol/L (0.4-2.0) White Blood Count 6.0 10^3/uL (4.4-10.8) Medications Medications Dose Ordered Sig/Linda Route Start Time Stop Time Status Last Admin Dose Admin Etomidate 20 mg ONCE ONCE IV 06/10/25 12:15 06/10/25 12:16 DC 06/10/25 11:58 20 MG Fentanyl Citrate 250 ml @ 2.5 mls/hr Q24H IV 06/10/25 15:45 06/10/25 16:00 2.5 MLS/HR Methylprednisolone Sodium Succinate 125 mg ONCE ONCE IV 06/10/25 12:00 06/10/25 12:02 DC 06/10/25 13:00 125 MG Midazolam HCl 50 ml @ 1 mls/hr Q24H IV 06/10/25 12:15 06/10/25 12:30 1 MLS/HR Succinylcholine Chloride 80 mg ONCE ONCE IV 06/10/25 12:15 06/10/25 12:16 DC 06/10/25 11:58 80 MG Assessment/Plan Assessment/Plan Acute metabolic encephalopathy -likely related to hypercapnia and electrolyte imbalance -currently on mechanical ventilation with sedation of fentanyl and Versed Acute hypercapnic hypoxic respiratory failure Acute Chronic obstructive pulmonary disease exacerbation -methylprednisolone 40 mg IV b.i.d.. -one time methylprednisolone 125 mg given -albuterol 2.5 nebulization q.6 scheduled -ipratropium bromide 0.5 nebulization q.6 scheduled -IV antibiotic with cefepime 1 g q.12 -ABG: PH 7.386, pCO2 53.6, HC03 31.4 -ventilation: A.c./VC: Respiratory rate 20, tidal volume 450, FiO2 70%, peep of five Acute diastolic HFpEF -chest x-ray: Mild pulmonary vascular congestion, no consolidation, no pleural effusion. -IV Lasix 20 mg daily -strict I&O -monitor electrolyte -echocardiogram on 04/20/2025: Left ventricular ejection fraction 60%, concentric LVH with septal hypertrophy, small pericardial effusion -repeat echocardiogram -ECG sinus rhythm without significant ST or T elevation, non trending troponin. ANDRES due to VMN Hyperkalemia -creatinine 1.63, GFR 33, potassium 5.9 -IV Lasix 20 mg daily -albuterol 20 mg inhalation given -repeat BMP Coronary artery disease with a history of MA with no stents -aspirin 81 mg p.o. daily Hypertension -hold home antihypertensive medication Hyperlipidemia -lipid panel 09/08/2024: LDL 54. GERD -Protonix 40 mg IV daily Obesity BMI 31.9 kg/meters squared Lumbar degenerative disease PUD prophylaxis with Protonix DVT prophylaxis with heparin Goals of care discussed greater than 25 minutes, with sister. Full code status. Critical care time spent greater than 78 minutes. Plan discussed with Dr. Ng Plan discussed with: Other (enrique sister) My Orders Orders - EUGENE MOSES Procedure Category Date Status Time Admit ADMIT 06/10/25 Transmitted 16:02 Abg W/ Co-Ox RT 06/10/25 Logged 16:03 Methylprednisolone PHA 06/11/25 Logged Sod Succ (Solu Medrol 10:00 Albuterol Medneb PHA 06/10/25 Logged (Ventolin Medneb) 16:15 Furosemide Injection PHA 06/10/25 Logged (Lasix Injection) 16:15 Cefepime 1gm/50ml PHA 06/10/25 Logged (Maxipime 1gm/50ml) 16:15 Cefepime 1gm/50ml PHA 06/10/25 Logged (Maxipime 1gm/50ml) 22:00 Albuterol Medneb PHA 06/10/25 Logged (Ventolin Medneb) 18:00 Ipratropium Medneb PHA 06/10/25 Logged (Atrovent Medneb) 18:00 Pantoprazole PHA 06/10/25 Logged (Protonix) 16:15 Pantoprazole PHA 06/11/25 Logged (Protonix) 10:00 Heparin Sodium PHA 06/10/25 Logged (Porcine) 22:00 Furosemide Injection PHA 06/11/25 Logged (Lasix Injection) 10:00 Basic Metabolic Panel LAB 06/11/25 Verified 04:00 Complete Blood Count LAB 06/11/25 Verified 04:00 Magnesium LAB 06/11/25 Verified 04:00 Abg W/ Co-Ox RT 06/11/25 Logged 04:00 Basic Metabolic Panel LAB 06/10/25 Logged 18:00 Date of Service: Jun 10, 2025 Billing Provider: VIKAS NG MD Common Visit Codes: [id number] INP/OBS CARE (HIGH), [id number] CARE 30- 74 MIN, [id number] CARE-EACH +30MIN Secondary Visit Codes: [id number] CARE PLAN 30 MINUTES EUGENE MOSES Jun 10, 2025 16:34
[2025-06-10] MEDS: PANTOPRAZOLE 40 MG/10 ML VIAL INJ IV ONE (16:41)
[2025-06-10] MEDS: FUROSEMIDE 20 MG/2 ML VIAL IV ONE (16:41)
[2025-06-10] MEDS: CEFEPIME 1GM/50ML 50 ML IV ONE (16:45)
[2025-06-10 16:50] LABS: Base Excess 5.7 mmol/L (-2.0-3.0)
[2025-06-10] MEDS: ALBUTEROL SULF 2.5 MG/0.5ML(0.5%) NEB SOLN NEB SCH (19:08)
[2025-06-10] MEDS: IPRATROPIUM BROM 0.5 MG/2.5ML INH SOL NEB SCH (19:08)
[2025-06-10] MEDS: ALBUTEROL SULF 2.5 MG/0.5ML(0.5%) NEB SOLN NEB ONE (19:09)
[2025-06-10 19:32] LABS: Anion Gap 9 (5-15); Potassium 3.7 mmol/L (3.5-5.1); Sodium 139 mmol/L (136-145)
[2025-06-10 19:33] LABS: Calcium 9.0 mg/dL (8.7-10.4)
[2025-06-10 19:38] LABS: BUN/Creatinine Ratio 18.3 (10.0-20.0); Blood Urea Nitrogen 21 mg/dL (9-23)
--- NOTE | 2025-06-10 19:55 | ECG ---
[facility] Test Date: 2025-06-10 Test Time: 12:31:08 Pat Name: JOHANA DAVIS Department: [facility] ED Room: [address] [place] [address] A Gender: F Clinical Allergist: nicholas : 1950 Requested By: DAKOTA OTERO Order Number: [id number] Reading MD: Yohannes Fontanie Measurements Intervals [place] Rate: 74 P: 43 KS: 132 QRS: 64 QRSD: 81 T: 53 QT: 374 QTc: 415 Interpretive Statements Sinus rhythm Ventricular premature complex Abnormal R-wave progression, early transition Electronically Signed On 06-12-2025 15:08:24 PDT by Yohannes Fontaine Please click the below link to view image of tracing.
[2025-06-10 20:19] LABS: Carbon Dioxide 32 mmol/L (20-31); Chloride 98 mmol/L (98-107); Glucose 134 mg/dL (74-106)
[2025-06-10] MEDS: HEPARIN SODIUM (PORCINE) 5000 UNITS/ML 1ML VIAL SC SCH (22:14)
[2025-06-10] MEDS: CEFEPIME 1GM/50ML 50 ML IV SCH (22:14)
[2025-06-11] VITALS (111 sets, daily range): BP systolic 70–224; BP diastolic 31–88; PULSE 55–111; RESP 18–22; TEMP 95.7–100.2; O2SAT 94–100
[2025-06-11] MEDS: NOREPINEPHRINE 8 MG/250ML KIT 250 ML IV SCH (00:12)
[2025-06-11] MEDS: SODIUM CHLORIDE 0.9% 500 ML IV ONE (02:56)
[2025-06-11 05:00] LABS: Hematocrit 33.4 % (36.0-46.0); Hemoglobin 11.3 g/dL (12.2-16.2); Mean Corpuscular Hemoglobin 30.4 pg (28.0-32.0); Mean Corpuscular Volume 89.5 fL (80.0-100.0); Nucleated Red Blood Cells % 0.1 %
[2025-06-11 05:16] LABS: Alanine Aminotransferase 16 U/L (7-40); Albumin 3.6 g/dL (3.2-4.8); Alkaline Phosphatase 55 U/L (46-116); Anion Gap 11 (5-15); BUN/Creatinine Ratio 26.6 (10.0-20.0); Carbon Dioxide 28 mmol/L (20-31); Chloride 101 mmol/L (98-107); Magnesium 1.7 mg/dL (1.6-2.6); Potassium 3.9 mmol/L (3.5-5.1); Sodium 140 mmol/L (136-145)
[2025-06-11 05:17] LABS: Bilirubin, Total 0.3 mg/dL (0.2-1.0)
[2025-06-11 05:19] LABS: Blood Urea Nitrogen 29 mg/dL (9-23); Calcium 8.4 mg/dL (8.7-10.4); Glucose 164 mg/dL (74-106); Total Protein 5.2 g/dL (5.7-8.2)
--- NOTE | 2025-06-11 06:33 | DVH ---
CHEST RADIOGRAPH Indication: ADJUSTED ETT Technique: Single frontal view of the chest was obtained COMPARISON: XY CHEST XRAY 1 VIEW on DOS: 06/10/25, XY CHEST PORTABLE on DOS: 06/10/25, XY CHEST TWO V IEWS ROUTINE on DOS: 04/10/25, CT CT ANGIO CHEST CONTRAST on DOS: 11/13/23, XY CHEST PORTABLE on DOS: FINDINGS: Lines and Tubes: Endotracheal tube, enteric catheter and right central venous catheter in satisfactor y position. Lungs: Unchanged pulmonary vascular congestion. Pleura: No effusion. No pneumothorax. Cardiomediastinal contours: Unremarkable. Bones: Unremarkable. IMPRESSION: Lines and tubes in satisfactory position. No significant interval change.
[2025-06-11 07:10] LABS: Base Excess 1.3 mmol/L (-2.0-3.0)
--- NOTE | 2025-06-11 09:47 | DVHPNRES ---
Progress Note Date Seen: Jun 11, 2025 Resident Creating Document: YONATAN RODARTE RESDIENT Medical Necessity Reason Pt with a Central, PICC or Fol: Yes Subjective Review of Systems This is a 75-year-old lady with a past medical history of COPD, HFpEF (EF 60% with concentric LVH and septal hypertrophy), hypertension, dyslipidemia and anxiety brought in by EMS from home due to altered mental status and shortness of breaths. Per patient's friend (Ingrid) she had fever and shortness of breaths since 1 day, and yesterday morning, Tenriism friends went to check on her at home, and she was found shortness of breaths and altered mental status. Per ER patient was intubated and sedated. PMHx: COPD, HFpEF (EF 60% with concentric LVH and septal hypertrophy), hypertension, dyslipidemia PSHx: Hysterectomy due to endometritis Social history: Lives alone at home, uses walker for mobility, independent for daily life activity, current smoker with 40 pack year history, has a sister (next of kin, living in [place]), no relieved is in high [facility] Home medication: Lasix 20 mg, atorvastatin, aspirin, losartan, bupropion, seen and carvedilol Allergic history: No known allergy. On 06/08, patient seen and examined at the bedside. Patient is sedated and on mechanical ventilation. Objective vital signs Vital Sign Date Time Temp Pulse Resp B/P (MAP) Pulse Ox O2 Delivery O2 Flow Rate FiO2 06/11/25 09:26 91 20 104/50 (68) 98 40 06/11/25 07:15 99.1 210.4 06/11/25 06:00 Mechanical Ventilator+ Total Intake and Output 06/10/25 06/10/25 06/11/25 15:00 23:00 07:00 Intake Total 158.0 ml 709.751 ml Output Total 600 ml Balance 158.0 ml 109.751 ml medications Current Medications Medications Dose Ordered Sig/Linda Route Start Time Stop Time Status Last Admin Dose Admin Midazolam HCl 50 ml @ 1 mls/hr Q24H IV 06/10/25 12:15 06/11/25 05:35 10 MLS/HR Norepinephrine Bitartrate 250 ml @ 3.75 mls/hr Q24H IV 06/10/25 13:15 06/11/25 00:12 3.75 MLS/HR Fentanyl Citrate 250 ml @ 2.5 mls/hr Q24H IV 06/10/25 15:45 06/10/25 16:00 2.5 MLS/HR Methylprednisolone Sodium Succinate 40 mg BID IV 06/11/25 10:00 Cefepime HCl 50 ml @ 12.5 mls/hr Q12HR IV 06/10/25 22:00 06/10/25 22:14 12.5 MLS/HR Albuterol 2.5 mg Q6HR NEB 06/10/25 18:00 06/11/25 05:54 2.5 MG Ipratropium [place] 0.5 mg Q6HR NEB 06/10/25 18:00 06/11/25 05:54 0.5 MG Pantoprazole Sodium 40 mg DAILY IV 06/11/25 10:00 Heparin Sodium (Porcine) 5,000 units Q12HR SC 06/10/25 22:00 06/10/25 22:14 5,000 UNITS Furosemide 20 mg DAILY IV 06/11/25 10:00 Enalapril Maleate 5 mg Q12HR PO 06/11/25 10:00 UNV Examination General: RASS 0, afebrile, mucosae are moist Cardiovascular: Normal S1 and S2. No murmurs, gallops or rubs Respiratory: Chest is clear, no crackles, rhonchi or wheezing GI: Soft, nontender, no organomegaly, normal bowel sounds, has NG tube , NPO : Pike catheter n place, clear yellow urine in collection bag, MSK/skin: Mobilization of limbs cannot be evaluated. Skin is dry and warm. No pedal edema, right IJ central line Neurological: Orientation cannot be assessed. No apparent motor no sensitive deficits. Pupils are isocoric and reactive laboratory and microbiology Laboratory Tests 06/11/25 04:40 Test 06/11/25 04:40 Range/Units Serum Glucose 164 H 74-106 mg/dL Labs and/or images reviewed: Labs reviewed by me, Image(s) reviewed by me Problem List/Assessment/Plan Problem List/Assessment/Plan This is a 75-year-old lady with a past medical history of COPD, HFpEF (EF 60% with concentric LVH and septal hypertrophy), hypertension, dyslipidemia and anxiety brought in by EMS from home due to altered mental status and shortness of breaths. Admitted and intubated on 06/10. NEURO: Acute metabolic encephalopathy, likely due to hypoxic/hypercapnic respiratory failure Anxiety * Plan: Continue fentanyl and Versed CARDIOVASCULAR: Acute on chronic diastolic heart failure Possible septic shock Hypertension Dyslipidemia * Plan: Levophed RESPIRATORY: Acute hypercapnic hypoxic respiratory failure, likely due to COPD exacerbation/pneumonia Pneumonia, likely due to Gram-positive/Gram-negative bacteria COPD exacerbation * Plan: Solu-Medrol 40 mg b.i.d., breathing treatment, IV antibiotic, mechanical ventilation GENITOURINARY/FLUID: ANDRES, VMN, resolved GASTROINTESTINAL/NUTRITION: * Jevity feeding INFECTIOUS DISEASE: Septic shock, likely due to sepsis Sepsis, likely due to pneumonia * Plan: Cefepime (06/10) and azithromycin (06/11) METABOLIC: Hyperkalemia MSK/SKIN: DIET: Jevity DVT prophylax: Lovenox GI prophylaxis: Protonix Bowel regimen: Lactulose LINES/DEVICES ETT: Intubated on IV access: Right IJ (06/10) Drips: Pike catheter: Placed on 06/10 Disposition: Continue ICU status Family: Patients sister updated through the phone. Critical care time: Spent > 81 min, spent in direct critical care, including evaluation, management, review of labs/imaging, and multidisciplinary/family discussions, (excluding any procedures). Case discussed with Dr. Munguia Plan discussed with: Other (RN) Date of Service: Jun 11, 2025 Billing Provider: KAVEH MUNGUIA MD Common Visit Codes: [id number] CARE 30-74 MIN, [id number] CARE-EACH +30MIN YONATAN RODARTE RESDIENT Jun 11, 2025 09:47 KAVEH MUNGUIA MD Jun 12, 2025 15:13
[2025-06-11] MEDS ORDERED: ENALAPRIL MALEATE 2.5 MG TAB PO SCH (10:00)
[2025-06-11] MEDS: FUROSEMIDE 20 MG/2 ML VIAL IV SCH (10:00)
[2025-06-11] MEDS: PANTOPRAZOLE 40 MG/10 ML VIAL INJ IV SCH (10:30)
[2025-06-11] MEDS: methylPREDNISolone SOD SUCC 40 MG/ML VL IV SCH (10:39)
[2025-06-11] MEDS: ENOXAPARIN SOD 40 MG/0.4 ML SYRINGE SC ONE (11:00)
[2025-06-11] MEDS: MAGNESIUM SULFATE 1GM/100ML 100 ML IV SCH (12:00)
[2025-06-11] MEDS: AZITHROMYCIN 500MG/ 250ML 250 ML IV ONE (14:40)
[2025-06-11] MEDS ORDERED: Jevity 1.2 Cal/Fiber 1 Liter GT SCH (17:45)
[2025-06-12] VITALS (109 sets, daily range): BP systolic 77–169; BP diastolic 31–106; PULSE 68–143; RESP 16–41; TEMP 96.6–99.7; O2SAT 74–99
[2025-06-12 03:37] LABS: Hematocrit 36.4 % (36.0-46.0); Hemoglobin 12.0 g/dL (12.2-16.2); Mean Corpuscular Hemoglobin 30.2 pg (28.0-32.0); Mean Corpuscular Volume 91.4 fL (80.0-100.0); Nucleated Red Blood Cells % 0.0 %
[2025-06-12 03:57] LABS: Alanine Aminotransferase 15 U/L (7-40); Albumin 4.2 g/dL (3.2-4.8); Alkaline Phosphatase 62 U/L (46-116); Anion Gap 10 (5-15); BUN/Creatinine Ratio 20.8 (10.0-20.0); Blood Urea Nitrogen 22 mg/dL (9-23); Carbon Dioxide 28 mmol/L (20-31); Chloride 100 mmol/L (98-107); Potassium 4.4 mmol/L (3.5-5.1); Sodium 138 mmol/L (136-145); Total Protein 6.4 g/dL (5.7-8.2)
[2025-06-12 03:58] LABS: Bilirubin, Total 0.3 mg/dL (0.2-1.0)
[2025-06-12 04:08] LABS: Calcium 8.6 mg/dL (8.7-10.4); Glucose 165 mg/dL (74-106)
--- NOTE | 2025-06-12 05:03 | DVH ---
CHEST RADIOGRAPH Indication: Pneumonia. Technique: Single frontal view of the chest was obtained Comparison: XY CHEST XRAY 1 VIEW on DOS: 06/11/25 FINDINGS: Lines and Tubes: The endotracheal tube terminates 2.9 cm above the marlene. There is a right central venous catheter with its tip terminating in the right atrium. The enteric tube terminates in the stom ach. Lungs: Stable mild interstitial prominence. Pleura: No effusion. No pneumothorax. Cardiomediastinal contours: Stable. Bones: No acute osseous abnormality. Right shoulder prosthesis. IMPRESSION: 1. Stable pulmonary vascular congestion. 2. Stable position of the support lines and tubes.
[2025-06-12 07:47] LABS: Base Excess 1.8 mmol/L (-2.0-3.0)
[2025-06-12] MEDS: ENOXAPARIN SOD 40 MG/0.4 ML SYRINGE SC SCH (09:28)
[2025-06-12] MEDS: AZITHROMYCIN 500MG/ 250ML 250 ML IV SCH (09:28)
[2025-06-12] MEDS: DEXMEDETOMIDINE HCL IN D5W 100 ML IV SCH (10:55)
[2025-06-12] MEDS: NOREPINEPHRINE 8 MG/250ML KIT 250 ML IV SCH (11:15)
[2025-06-12] MEDS: FUROSEMIDE 20 MG/2 ML VIAL IV ONE (15:31)
[2025-06-12] MEDS: FUROSEMIDE 20 MG/2 ML VIAL ONE (15:31)
[2025-06-12 16:01] LABS: Base Excess -3.0 mmol/L (-2.0-3.0)
--- NOTE | 2025-06-12 17:58 | DVHPNRES ---
Progress Note Date Seen: Jun 12, 2025 Resident Creating Document: YONATAN RODARTE RESDIENT Medical Necessity Reason Pt with a Central, PICC or Fol: Yes Subjective Review of Systems This is a 75-year-old lady with a past medical history of COPD, HFpEF (EF 60% with concentric LVH and septal hypertrophy), hypertension, dyslipidemia and anxiety brought in by EMS from home due to altered mental status and shortness of breaths. Per patient's friend (Ingrid) she had fever and shortness of breaths since 1 day, and yesterday morning, [employer] friends went to check on her at home, and she was found shortness of breaths and altered mental status. Per ER patient was intubated and sedated. PMHx: COPD, HFpEF (EF 60% with concentric LVH and septal hypertrophy), hypertension, dyslipidemia PSHx: Hysterectomy due to endometritis Social history: Lives alone at home, uses walker for mobility, independent for daily life activity, current smoker with 40 pack year history, has a sister (next of kin, living in [place]), no relieved is in high [facility] Home medication: Lasix 20 mg, atorvastatin, aspirin, losartan, bupropion, seen and carvedilol Allergic history: No known allergy. On 06/08, patient seen and examined at the bedside. Patient is sedated and on mechanical ventilation. Objective vital signs Vital Sign Date Time Temp Pulse Resp B/P (MAP) Pulse Ox O2 Delivery O2 Flow Rate FiO2 06/12/25 16:50 85/37 06/12/25 16:23 118 06/12/25 16:22 20 93 Mechanical Ventilator+ 30 30 06/12/25 15:00 97.7 207.9 Total Intake and Output 06/11/25 06/11/25 06/12/25 15:00 23:00 07:00 Intake Total 353.125 ml 240.000 ml 276.875 ml Output Total 325 ml 450 ml Balance 353.125 ml -85.000 ml -173.125 ml medications Current Medications Medications Dose Ordered Sig/Linda Route Start Time Stop Time Status Last Admin Dose Admin Midazolam HCl 50 ml @ 1 mls/hr Q24H IV 06/10/25 12:15 06/12/25 11:13 5 MLS/HR Fentanyl Citrate 250 ml @ 2.5 mls/hr Q24H IV 06/10/25 15:45 06/12/25 17:44 17.5 MLS/HR Methylprednisolone Sodium Succinate 40 mg BID IV 06/11/25 10:00 06/12/25 09:30 40 MG Cefepime HCl 50 ml @ 12.5 mls/hr Q12HR IV 06/10/25 22:00 06/12/25 09:25 12.5 MLS/HR Albuterol 2.5 mg Q6HR NEB 06/10/25 18:00 06/12/25 11:54 2.5 MG Ipratropium [place] 0.5 mg Q6HR NEB 06/10/25 18:00 06/12/25 11:54 0.5 MG Pantoprazole Sodium 40 mg DAILY IV 06/11/25 10:00 06/12/25 09:29 40 MG Enalapril Maleate 5 mg Q12HR PO 06/11/25 10:00 UNV Azithromycin 250 ml @ 125 mls/hr DAILY IV 06/12/25 10:00 06/12/25 09:28 125 MLS/HR Enoxaparin Sodium 40 mg DAILY SC 06/12/25 10:00 06/12/25 09:28 40 MG Enteral Nutritional Formula 1,000 ml 30ML/HR GT 06/11/25 17:45 Norepinephrine Bitartrate 250 ml @ 3.75 mls/hr Q24H IV 06/12/25 11:15 06/12/25 11:15 0.938 MLS/HR Examination General: RASS 0, afebrile, mucosae are moist Cardiovascular: Normal S1 and S2. No murmurs, gallops or rubs Respiratory: Chest is clear, no crackles, rhonchi or wheezing GI: Soft, nontender, no organomegaly, normal bowel sounds, has NG tube , NPO : Pike catheter n place, clear yellow urine in collection bag, MSK/skin: Mobilization of limbs cannot be evaluated. Skin is dry and warm. No pedal edema, right IJ central line Neurological: Orientation cannot be assessed. No apparent motor no sensitive deficits. Pupils are isocoric and reactive laboratory and microbiology Laboratory Tests 06/12/25 03:05 Test 06/12/25 03:05 Range/Units Serum Glucose 165 H 74-106 mg/dL Microbiology Date/Time Source Procedure Growth Status 06/11/25 02:00 Nose MRSA Screen - Final Complete 06/10/25 12:16 Blood Blood Culture - Preliminary NO GROWTH AFTER 48 HOURS OF INCUBATION. Resulted 06/10/25 12:04 Sputum Gram Stain - Final Resulted 06/10/25 12:04 Sputum Respiratory Culture - Preliminary Resulted Problem List/Assessment/Plan Problem List/Assessment/Plan This is a 75-year-old lady with a past medical history of COPD, HFpEF (EF 60% with concentric LVH and septal hypertrophy), hypertension, dyslipidemia and anxiety brought in by EMS from home due to altered mental status and shortness of breaths. Admitted and intubated on 06/10. NEURO: Acute metabolic encephalopathy, likely due to hypoxic/hypercapnic respiratory failure Anxiety * Plan: Continue fentanyl and Versed CARDIOVASCULAR: Acute on chronic diastolic heart failure Possible septic shock Hypertension Dyslipidemia * Plan: Levophed RESPIRATORY: Acute hypercapnic hypoxic respiratory failure, likely due to COPD exacerbation/pneumonia Pneumonia, likely due to Gram-positive/Gram-negative bacteria COPD exacerbation * Plan: Solu-Medrol 40 mg t.i.d., breathing treatment, IV antibiotic, mechanical ventilation GENITOURINARY/FLUID: ANDRES, VMN, resolved GASTROINTESTINAL/NUTRITION: * Jevity feeding INFECTIOUS DISEASE: Septic shock, likely due to sepsis Sepsis, likely due to pneumonia * Plan: Cefepime (06/10) and azithromycin (06/11) METABOLIC: Hyperkalemia MSK/SKIN: DIET: Jevity DVT prophylax: Lovenox GI prophylaxis: Protonix Bowel regimen: Lactulose LINES/DEVICES ETT: Intubated on IV access: Right IJ (06/10) Drips: Pike catheter: Placed on 06/10 Disposition: Continue ICU status Family: Patients sister updated through the phone. Critical care time: Spent > 103 min, spent in direct critical care, including evaluation, management, review of labs/imaging, and multidisciplinary/family discussions,including CPAP trial- FAILED, (excluding any procedures). Case discussed with Dr. Munguia Plan discussed with: Patient, Other (RN) My Orders My Orders Orders - YONATAN RODARTE RESDIROBERT Procedure Category Date Status Time Dexmedetomidine Hcl PHA 06/12/25 In Process In D5w (Precedex) 09:30 Norepinephrine 8 PHA 06/12/25 In Process Mg/250ml Kit 11:15 Dietary Evaluation Review Comments: Nutrition Recommendation 1) EN Jevity 1.2 Edward @ 50ml/hr x 24hr(goal) along with Pro-stat 1 pk BID. Water flush 170ml Q6H if allowed, adjust PRN. TF at goal volume provides 1640 kcal (100%), 97gm protein (100%), and 1648 ml free water (including flush). 2) Consider TPN/PN if NPO>7 days 3) Advance to cardiac diet as medically feasible 4) Monitor NPO status, lab values, weight trend, and I/O Expected Outcomes/Goals: Intake to meet >75% estimated needs Fu 2-3 days Date of Service: Jun 12, 2025 Billing Provider: KAVEH MUNGUIA MD Common Visit Codes: 93166-[id number] CARE 30-74 MIN, [id number] CARE-EACH +30MIN YONATAN RODARTE RESDIROBERT Jun 12, 2025 17:58 KAVEH MUNGUIA MD Jun 13, 2025 13:11
[2025-06-12] MEDS: methylPREDNISolone SOD SUCC 40 MG/ML VL IV SCH (18:34)
[2025-06-13] VITALS (110 sets, daily range): BP systolic 104–171; BP diastolic 46–104; PULSE 71–112; RESP 6–36; TEMP 96.6–99.7; O2SAT 87–100
[2025-06-13 03:56] LABS: Hematocrit 35.1 % (36.0-46.0); Hemoglobin 12.0 g/dL (12.2-16.2); Mean Corpuscular Hemoglobin 31.0 pg (28.0-32.0); Mean Corpuscular Volume 90.8 fL (80.0-100.0); Nucleated Red Blood Cells % 0.0 %
[2025-06-13 04:09] LABS: Alanine Aminotransferase 13 U/L (7-40); Albumin 4.1 g/dL (3.2-4.8); Alkaline Phosphatase 56 U/L (46-116); Anion Gap 10 (5-15); BUN/Creatinine Ratio 24.7 (10.0-20.0); Blood Urea Nitrogen 22 mg/dL (9-23); Carbon Dioxide 28 mmol/L (20-31); Chloride 102 mmol/L (98-107); Potassium 4.1 mmol/L (3.5-5.1); Sodium 140 mmol/L (136-145); Total Protein 6.2 g/dL (5.7-8.2)
[2025-06-13 04:11] LABS: Bilirubin, Total 0.3 mg/dL (0.2-1.0)
[2025-06-13 04:35] LABS: Calcium 8.6 mg/dL (8.7-10.4); Glucose 135 mg/dL (74-106)
--- NOTE | 2025-06-13 05:27 | DVH ---
CHEST RADIOGRAPH Indication: Pneumonia Technique: Single frontal view of the chest was obtained COMPARISON: XY CHEST XRAY 1 VIEW on DOS: 06/12/25, XY CHEST XRAY 1 VIEW on DOS: 06/11/25, XY CHEST XR AY 1 VIEW on DOS: 06/10/25, XY CHEST PORTABLE on DOS: 06/10/25, XY CHEST TWO VIEWS ROUTINE on DOS: 08/23 FINDINGS: Lines and Tubes: Endotracheal tube, enteric catheter and right central venous catheter in satisfactor y position. Lungs: Mild pulmonary vascular congestion, unchanged. Pleura: No effusion. No pneumothorax. Cardiomediastinal contours: Unremarkable. Bones: Unremarkable. IMPRESSION: Lines and tubes in satisfactory position. No significant interval change.
[2025-06-13 07:18] LABS: Base Excess 0.7 mmol/L (-2.0-3.0)
--- NOTE | 2025-06-13 07:49 | ECG ---
[facility] Test Date: 2025-06-12 Test Time: 02:40:00 Pat Name: JOHANA DAVIS Department: icu Room: [address] [place] [address] A Gender: F Display Trimmer: loraine : 1950 Requested By: EUGENE MOSES Order Number: [id number] Reading MD: Yohannes Fontaine Measurements Intervals [place] Rate: 136 P: 39 [place]: 128 QRS: 58 QRSD: 90 T: 18 QT: 307 QTc: 462 Interpretive Statements Sinus tachycardia Multiple ventricular premature complexes Probable left atrial enlargement Electronically Signed On 06-13-2025 9:07:16 PDT by Yohannes Fontaine Please click the below link to view image of tracing.
[2025-06-13] MEDS: hydrALAZINE HCL 20 MG/ML VL IV ONE (08:45)
[2025-06-13] MEDS: IPRATROPIUM BROM 0.5 MG/2.5ML INH SOL NEB SCH (09:33)
[2025-06-13] MEDS: ALBUTEROL SULF 2.5 MG/0.5ML(0.5%) NEB SOLN NEB SCH (09:33)
--- NOTE | 2025-06-13 10:01 | DVHSR ---
APPROVED REPORT EXAM: Two-dimensional and M-mode echocardiogram with Doppler and color Doppler. Blood Pressure: 147/70 mmHg INDICATION Chest Pain RISK FACTORS Height: 5'3", Weight: 154 DIMENSIONS LVDd4.0 (3.8-5.7cm)LA (2D)3.9 (1.9-4.0cm)Aortic Root (2.0-3.7cm) LVDs2.6 (2.5-4.0cm)LA (MM) (1.9-4.0cm)Aortic Cusp Exc (1.5-2.0cm) EF (%) 64.0 (55-70%)Rt. Atrium (1.9-4.0cm)Asc. Aorta cm IVSd0.8 (0.7-1.1cm)RV (D) (1.8-2.4cm) Mitral Valve MitralMitral Stenosis E/A ratio0.02D MVAcm2 Aortic Valve Aortic ValveAortic Stenosis V11.47m/Alyssa Mean GR.6mmHg V21.66m/Alyssa Peak GR.11mmHg LVOT Diameter2.0 (1.8-2.4cm)Doppler AVA2.78cm2 Other Information Quality : Technically LimitedRhythm : Technically limited study due to on vent. Conclusion LV EF IS 70% HYPERDYNAMIC LV DYSKINESIS OF IVS RV SLIGHTLY DILATED RV STRAIN PATTERN NORMAL VALVES NO EFFUSION
[2025-06-13 12:11] LABS: Base Excess 0.0 mmol/L (-2.0-3.0)
--- NOTE | 2025-06-13 16:11 | DVHPNRES ---
Progress Note Date Seen: Jun 13, 2025 Resident Creating Document: YONATAN RODARTE RESDIENT Medical Necessity Reason Pt with a Central, PICC or Fol: Yes Subjective Review of Systems This is a 75-year-old lady with a past medical history of COPD, HFpEF (EF 60% with concentric LVH and septal hypertrophy), hypertension, dyslipidemia and anxiety brought in by EMS from home due to altered mental status and shortness of breaths. Per patient's friend (Ingrid) she had fever and shortness of breaths since 1 day, and yesterday morning, Denomin[employer] friends went to check on her at home, and she was found shortness of breaths and altered mental status. Per ER patient was intubated and sedated. PMHx: COPD, HFpEF (EF 60% with concentric LVH and septal hypertrophy), hypertension, dyslipidemia PSHx: Hysterectomy due to endometritis Social history: Lives alone at home, uses walker for mobility, independent for daily life activity, current smoker with 40 pack year history, has a sister (next of kin, living in [place]), no relieved is in high [facility] Home medication: Lasix 20 mg, atorvastatin, aspirin, losartan, bupropion, seen and carvedilol Allergic history: No known allergy. patient seen and examined at the bedside. Patient is sedated and on mechanical ventilation. Objective vital signs Vital Sign Date Time Temp Pulse Resp B/P (MAP) Pulse Ox O2 Delivery O2 Flow Rate FiO2 06/13/25 16:04 89 20 98 06/13/25 15:58 Mask 8.0 06/13/25 15:58 35 35 06/13/25 14:45 98.6 121/60 (80) 209.5 Total Intake and Output 06/12/25 06/12/25 06/13/25 15:00 23:00 07:00 Intake Total 477.926 ml 172.770 ml 864.865 ml Output Total 850 ml 600 ml Balance 477.926 ml -677.230 ml 264.865 ml medications Current Medications Medications Dose Ordered Sig/Linda Route Start Time Stop Time Status Last Admin Dose Admin Midazolam HCl 50 ml @ 1 mls/hr Q24H IV 06/10/25 12:15 06/12/25 11:13 5 MLS/HR Fentanyl Citrate 250 ml @ 2.5 mls/hr Q24H IV 06/10/25 15:45 06/13/25 06:08 15 MLS/HR Cefepime HCl 50 ml @ 12.5 mls/hr Q12HR IV 06/10/25 22:00 06/13/25 09:59 12.5 MLS/HR Pantoprazole Sodium 40 mg DAILY IV 06/11/25 10:00 06/13/25 09:59 40 MG Enalapril Maleate 5 mg Q12HR PO 06/11/25 10:00 UNV Azithromycin 250 ml @ 125 mls/hr DAILY IV 06/12/25 10:00 06/13/25 09:59 125 MLS/HR Enoxaparin Sodium 40 mg DAILY SC 06/12/25 10:00 06/13/25 10:00 40 MG Enteral Nutritional Formula 1,000 ml 30ML/HR GT 06/11/25 17:45 Norepinephrine Bitartrate 250 ml @ 3.75 mls/hr Q24H IV 06/12/25 11:15 06/12/25 11:15 0.938 MLS/HR Methylprednisolone Sodium Succinate 40 mg TID IV 06/12/25 18:00 06/13/25 13:32 40 MG Albuterol 2.5 mg Q4HR NEB 06/13/25 10:00 06/13/25 13:05 2.5 MG Albuterol 2.5 mg Q4HPRN PRN NEB 06/13/25 16:00 Ipratropium [place] 0.5 mg Q4HPRN PRN NEB 06/13/25 16:00 Examination General: RASS 0, afebrile, mucosae are moist Cardiovascular: Normal S1 and S2. No murmurs, gallops or rubs Respiratory: Chest is clear, no crackles, rhonchi or wheezing GI: Soft, nontender, no organomegaly, normal bowel sounds, has NG tube , NPO : Pike catheter n place, clear yellow urine in collection bag, MSK/skin: Mobilization of limbs cannot be evaluated. Skin is dry and warm. No pedal edema, right IJ central line Neurological: Orientation cannot be assessed. No apparent motor no sensitive deficits. Pupils are isocoric and reactive laboratory and microbiology Laboratory Tests 06/13/25 02:30 Test 06/13/25 02:30 Range/Units Serum Glucose 135 H 74-106 mg/dL Microbiology Date/Time Source Procedure Growth Status 06/11/25 02:00 Nose MRSA Screen - Final Complete 06/10/25 12:16 Blood Blood Culture - Preliminary NO GROWTH AFTER 72 HOURS OF INCUBATION. Resulted 06/10/25 12:04 Sputum Gram Stain - Final Complete 06/10/25 12:04 Sputum Respiratory Culture - Final Complete Problem List/Assessment/Plan Problem List/Assessment/Plan This is a 75-year-old lady with a past medical history of COPD, HFpEF (EF 60% with concentric LVH and septal hypertrophy), hypertension, dyslipidemia and anxiety brought in by EMS from home due to altered mental status and shortness of breaths. Admitted and intubated on 06/10. NEURO: Acute metabolic encephalopathy, likely due to hypoxic/hypercapnic respiratory failure Anxiety * Plan: Continue fentanyl and Versed CARDIOVASCULAR: Acute on chronic diastolic heart failure Possible septic shock Hypertension Dyslipidemia * Plan: Levophed RESPIRATORY: Acute hypercapnic hypoxic respiratory failure, likely due to COPD exacerbation/pneumonia Pneumonia, likely due to Gram-positive/Gram-negative bacteria COPD exacerbation * Plan: Solu-Medrol 40 mg t.i.d., breathing treatment, IV antibiotic * GENITOURINARY/FLUID: ANDRES, VMN, resolved GASTROINTESTINAL/NUTRITION: * Jevity feeding INFECTIOUS DISEASE: Septic shock, likely due to sepsis Sepsis, likely due to pneumonia * Plan: Cefepime (06/10) and azithromycin (06/11) METABOLIC: Hyperkalemia MSK/SKIN: DIET: Jevity DVT prophylax: Lovenox GI prophylaxis: Protonix Bowel regimen: Lactulose LINES/DEVICES ETT: Intubated on 06/10, extubated on 06/13 IV access: Right IJ (06/10) Drips: Pike catheter: Placed on 06/10 Disposition: Continue ICU status Family: Patients sister updated through the phone. Critical care time: Spent > 107 min, spent in direct critical care, including evaluation, management, review of labs/imaging, and multidisciplinary/family discussions, including CPAP trial, (excluding any procedures). Case discussed with Dr. Munguia Plan discussed with: Patient, Other My Orders My Orders Orders - YONATAN RODARTE RESDIENT Procedure Category Date Status Time Methylprednisolone PHA 06/12/25 In Process Sod Succ (Solu Medrol 18:00 Cpap Trial For Am ORDERS 06/12/25 Transmitted 17:58 Chest Xray 1 View XY 06/13/25 Resulted 04:00 Abg W/ Co-Ox RT 06/13/25 Logged 04:00 Cpap/Sed Vacation Med ORDERS 06/13/25 Transmitted Weaning 08:02 Albuterol Medneb PHA 06/13/25 In Process (Ventolin Medneb) 10:00 Abg W/ Co-Ox RT 06/13/25 Logged 11:47 Albuterol Medneb PHA 06/13/25 In Process (Ventolin Medneb) 16:00 Ipratropium Medneb PHA 06/13/25 In Process (Atrovent Medneb) 16:00 Dietary Evaluation Review Comments: Nutrition Recommendation 1) EN Jevity 1.2 Edward @ 50ml/hr x 24hr(goal) along with Pro-stat 1 pk BID. Water flush 170ml Q6H if allowed, adjust PRN. TF at goal volume provides 1640 kcal (100%), 97gm protein (100%), and 1648 ml free water (including flush). 2) Consider TPN/PN if NPO>7 days 3) Advance to cardiac diet as medically feasible 4) Monitor NPO status, lab values, weight trend, and I/O Expected Outcomes/Goals: Intake to meet >75% estimated needs Fu 2-3 days Date of Service: Jun 13, 2025 Billing Provider: KAVEH MUNGUIA MD Common Visit Codes: [id number] CARE 30-74 MIN, [id number] CARE-EACH +30MIN YONATAN RODARTE Jun 13, 2025 16:11 KAVEH MUNGUIA MD Jun 14, 2025 10:56
[2025-06-13] MEDS: ALBUTEROL SULF 2.5 MG/0.5ML(0.5%) NEB SOLN NEB PRN (16:27)
[2025-06-13] MEDS: IPRATROPIUM BROM 0.5 MG/2.5ML INH SOL NEB PRN (16:27)
[2025-06-13] MEDS: IPRATROPIUM BROM 0.5 MG/2.5ML INH SOL ONE (16:28)
[2025-06-13] MEDS: ALBUTEROL SULF 2.5 MG/0.5ML(0.5%) NEB SOLN ONE (16:28)
[2025-06-13] MEDS: ONDANSETRON HCL 4 MG/2 ML VIAL IV ONE (17:45)
[2025-06-13] MEDS: ONDANSETRON HCL 4 MG/2 ML VIAL ONE (17:52)
[2025-06-13] MEDS: ONDANSETRON HCL 4 MG/2 ML VIAL IV PRN (22:32)
[2025-06-14] VITALS (53 sets, daily range): BP systolic 116–155; BP diastolic 56–91; PULSE 74–99; RESP 0–44; TEMP 97.8–98.4; O2SAT 89–99
[2025-06-14 03:22] LABS: Hematocrit 35.5 % (36.0-46.0); Hemoglobin 12.1 g/dL (12.2-16.2); Mean Corpuscular Hemoglobin 30.8 pg (28.0-32.0); Mean Corpuscular Volume 90.9 fL (80.0-100.0); Nucleated Red Blood Cells % 0.0 %
[2025-06-14 03:41] LABS: Alanine Aminotransferase 15 U/L (7-40); Alkaline Phosphatase 51 U/L (46-116); Anion Gap 9 (5-15); BUN/Creatinine Ratio 35.6 (10.0-20.0); Calcium 8.9 mg/dL (8.7-10.4); Carbon Dioxide 28 mmol/L (20-31); Chloride 104 mmol/L (98-107); Potassium 4.1 mmol/L (3.5-5.1); Sodium 141 mmol/L (136-145); Total Protein 6.1 g/dL (5.7-8.2)
[2025-06-14 03:42] LABS: Albumin 4.1 g/dL (3.2-4.8)
[2025-06-14 03:43] LABS: Bilirubin, Total 0.4 mg/dL (0.2-1.0)
[2025-06-14 03:58] LABS: Blood Urea Nitrogen 26 mg/dL (9-23); Glucose 128 mg/dL (74-106)
--- NOTE | 2025-06-14 05:54 | DVH ---
CHEST RADIOGRAPH Indication: Pneumonia Technique: Single frontal view of the chest was obtained COMPARISON: XY CHEST XRAY 1 VIEW on DOS: 06/13/25, XY CHEST XRAY 1 VIEW on DOS: 06/12/25, XY CHEST XR AY 1 VIEW on DOS: 06/11/25, XY CHEST XRAY 1 VIEW on DOS: 06/10/25, XY CHEST PORTABLE on DOS: 06/10/25 FINDINGS: Lines and Tubes: Right central venous catheter in satisfactory position. Lungs: Mild congestion Pleura: No effusion. No pneumothorax. Cardiomediastinal contours: Unremarkable Bones: Unremarkable IMPRESSION: Mild congestion.
[2025-06-14] MEDS: SODIUM CHLORIDE 0.9% 500 ML IV ONE (06:18)
[2025-06-14] MEDS: PATIENTS OWN MEDICATION PO SCH (10:00)
[2025-06-14] MEDS ORDERED: GABAPENTIN 300 MG CAP PO SCH (10:00)
[2025-06-14] MEDS: FUROSEMIDE 20 MG/2 ML VIAL IV SCH (10:15)
[2025-06-14] MEDS: GABAPENTIN 300 MG CAP PO ONE (10:16)
[2025-06-14] MEDS: HYDROcodone-ACET 5/325MG TAB PO PRN (15:09)
[2025-06-14] MEDS: OXYCODONE W/ ACETAMINOPHEN 5/325MG TABLET PO PRN (17:51)
--- NOTE | 2025-06-14 17:58 | DVHPNRES ---
Progress Note Date Seen: Jun 14, 2025 Resident Creating Document: YONATAN RODARTE RESDIENT Medical Necessity Reason Pt with a Central, PICC or Fol: Yes Subjective Review of Systems This is a 75-year-old lady with a past medical history of COPD, HFpEF (EF 60% with concentric LVH and septal hypertrophy), hypertension, dyslipidemia and anxiety brought in by EMS from home due to altered mental status and shortness of breaths. Per patient's friend (Ingrid) she had fever and shortness of breaths since 1 day, and yesterday morning, [employer] friends went to check on her at home, and she was found shortness of breaths and altered mental status. Per ER patient was intubated and sedated. PMHx: COPD, HFpEF (EF 60% with concentric LVH and septal hypertrophy), hypertension, dyslipidemia PSHx: Hysterectomy due to endometritis Social history: Lives alone at home, uses walker for mobility, independent for daily life activity, current smoker with 40 pack year history, has a sister (next of kin, living in [place]), no relieved is in high [facility] Home medication: Lasix 20 mg, atorvastatin, aspirin, losartan, bupropion, seen and carvedilol Allergic history: No known allergy. patient seen and examined at the bedside. Patient is sedated and on mechanical ventilation. Objective vital signs Vital Sign Date Time Temp Pulse Resp B/P (MAP) Pulse Ox O2 Delivery O2 Flow Rate FiO2 06/14/25 13:00 97.8 79 16 145/87 (106) 96 97.8 06/14/25 10:10 Nasal Cannula 2.0 06/14/25 10:10 28 Total Intake and Output 06/13/25 06/13/25 06/14/25 15:00 23:00 07:00 Intake Total 388.56 ml 0 ml 0 ml Output Total 400 ml 250 ml Balance 388.56 ml -400 ml -250 ml medications Current Medications Medications Dose Ordered Sig/Linda Route Start Time Stop Time Status Last Admin Dose Admin Cefepime HCl 50 ml @ 12.5 mls/hr Q12HR IV 06/10/25 22:00 06/14/25 08:29 12.5 MLS/HR Enalapril Maleate 5 mg Q12HR PO 06/11/25 10:00 UNV Azithromycin 250 ml @ 125 mls/hr DAILY IV 06/12/25 10:00 06/14/25 08:03 125 MLS/HR Enoxaparin Sodium 40 mg DAILY SC 06/12/25 10:00 06/14/25 08:04 40 MG Albuterol 2.5 mg Q4HPRN PRN NEB 06/13/25 16:00 06/14/25 10:10 2.5 MG Ipratropium [place] 0.5 mg Q4HPRN PRN NEB 06/13/25 16:00 06/14/25 02:26 0.5 MG Ondansetron HCl 4 mg Q6HPRN PRN IV 06/13/25 23:00 06/14/25 07:09 4 MG Bupropion HCl 150 mg BID@07,19 PO 06/14/25 19:00 Gabapentin 300 mg BID PO 06/14/25 22:00 Methylprednisolone Sodium Succinate 40 mg BID IV 06/14/25 22:00 Furosemide 20 mg DAILY PO 06/15/25 10:00 Patient Own Medication 1 DAILY PO 06/15/25 10:00 Future Hold Oxycodone/ Acetaminophen 2 tab Q6HP PRN PO 06/14/25 17:15 06/14/25 17:51 2 TAB Examination General: RASS 0, afebrile, mucosae are moist Cardiovascular: Normal S1 and S2. No murmurs, gallops or rubs Respiratory: Chest is clear, no crackles, rhonchi or wheezing GI: Soft, nontender, no organomegaly, normal bowel sounds, has NG tube , NPO : Pike catheter n place, clear yellow urine in collection bag, MSK/skin: Mobilization of limbs cannot be evaluated. Skin is dry and warm. No pedal edema, right IJ central line Neurological: Orientation cannot be assessed. No apparent motor no sensitive deficits. Pupils are isocoric and reactive laboratory and microbiology Laboratory Tests 06/14/25 02:40 Test 06/14/25 02:40 Range/Units Serum Glucose 128 H 74-106 mg/dL Microbiology Date/Time Source Procedure Growth Status 06/11/25 02:00 Nose MRSA Screen - Final Complete 06/10/25 12:16 Blood Blood Culture - Preliminary NO GROWTH AFTER 72 HOURS OF INCUBATION. Resulted 06/10/25 12:04 Sputum Gram Stain - Final Complete 06/10/25 12:04 Sputum Respiratory Culture - Final Complete Labs and/or images reviewed: Labs reviewed by me, Image(s) reviewed by me Problem List/Assessment/Plan Problem List/Assessment/Plan This is a 75-year-old lady with a past medical history of COPD, HFpEF (EF 60% with concentric LVH and septal hypertrophy), hypertension, dyslipidemia and anxiety brought in by EMS from home due to altered mental status and shortness of breaths. Admitted and intubated on 06/10. NEURO: Acute metabolic encephalopathy, likely due to hypoxic/hypercapnic respiratory failure Anxiety * Plan: Aripiprazole, bupropion and gabapentin CARDIOVASCULAR: Acute on chronic diastolic heart failure Possible septic shock Hypertension Dyslipidemia RESPIRATORY: Acute hypercapnic hypoxic respiratory failure, likely due to COPD exacerbation/pneumonia Pneumonia, likely due to Gram-positive/Gram-negative bacteria COPD exacerbation * Plan: Solu-Medrol 40 mg b.i.d., breathing treatment, IV antibiotic * GENITOURINARY/FLUID: ANDRES, VMN, resolved GASTROINTESTINAL/NUTRITION: * Jevity feeding INFECTIOUS DISEASE: Septic shock, likely due to sepsis Sepsis, likely due to pneumonia * Plan: Cefepime (06/10) and azithromycin (06/11) METABOLIC: Hyperkalemia MSK/SKIN: DIET: Jevity DVT prophylax: Lovenox GI prophylaxis: Protonix Bowel regimen: Lactulose LINES/DEVICES ETT: Intubated on 06/10, extubated on 06/13 IV access: Right IJ (06/10) Drips: Pike catheter: Placed on 06/10 Disposition: Telemetry Family: Patients sister updated through the phone. Advanced care plannin minutes. Case discussed with Dr. Munguia Plan discussed with: Patient, Other My Orders My Orders Orders - YONATAN RODARTE RESDIROBRET Procedure Category Date Status Time Transfer Orders XFER 06/14/25 Transmitted 09:24 Bupropion Tablet PHA 06/14/25 In Process (Wellbutrin Tablet) 19:00 Gabapentin Capsule PHA 06/14/25 In Process (Neurontin Capsule) 22:00 Pureed DIET 06/14/25 Transmitted Lunch Methylprednisolone PHA 06/14/25 In Process Sod Succ (Solu Medrol 22:00 Comprehensive LAB 06/15/25 Verified Metabolic Panel 04:00 Complete Blood Count LAB 06/15/25 Verified 04:00 Chest Xray 1 View XY 06/15/25 Logged 04:00 Furosemide Tablet PHA 06/15/25 In Process (Lasix Tablet) 10:00 Patients Own PHA 06/15/25 In Process Medication 10:00 Dietary Evaluation Review Comments: Nutrition Recommendation 1) EN Jevity 1.2 Edward @ 50ml/hr x 24hr(goal) along with Pro-stat 1 pk BID. Water flush 170ml Q6H if allowed, adjust PRN. TF at goal volume provides 1640 kcal (100%), 97gm protein (100%), and 1648 ml free water (including flush). 2) Consider TPN/PN if NPO>7 days 3) Advance to cardiac diet as medically feasible 4) Monitor NPO status, lab values, weight trend, and I/O Expected Outcomes/Goals: Intake to meet >75% estimated needs Fu 2-3 days Date of Service: Jun 14, 2025 Billing Provider: KAVEH MUNGUIA MD Common Visit Codes: [id number] INP/OBS CARE(HIGH) Secondary Visit Codes: [id number] CARE PLAN 30 MINUTES YONATAN RODARTE RESDIENT Jun 14, 2025 17:58 KAVEH MUNGUIA MD Jun 16, 2025 11:08
[2025-06-14] MEDS: methylPREDNISolone SOD SUCC 40 MG/ML VL IV SCH (21:58)
[2025-06-14] MEDS: GABAPENTIN 300 MG CAP PO SCH (21:58)
[2025-06-15] VITALS (8 sets, daily range): BP systolic 140–168; BP diastolic 86–103; PULSE 73–88; RESP 16–19; TEMP 97.5–98.4; O2SAT 91–96
[2025-06-15 06:53] LABS: Hematocrit 35.4 % (36.0-46.0); Hemoglobin 12.0 g/dL (12.2-16.2); Mean Corpuscular Hemoglobin 31.0 pg (28.0-32.0); Mean Corpuscular Volume 91.4 fL (80.0-100.0); Nucleated Red Blood Cells % 0.1 %
[2025-06-15 07:10] LABS: Alanine Aminotransferase 17 U/L (7-40); Albumin 3.8 g/dL (3.2-4.8); Alkaline Phosphatase 48 U/L (46-116); Anion Gap 8 (5-15); BUN/Creatinine Ratio 39.5 (10.0-20.0); Bilirubin, Total 0.5 mg/dL (0.2-1.0); Calcium 8.8 mg/dL (8.7-10.4); Carbon Dioxide 30 mmol/L (20-31); Chloride 102 mmol/L (98-107); Potassium 4.3 mmol/L (3.5-5.1); Sodium 140 mmol/L (136-145); Total Protein 5.8 g/dL (5.7-8.2)
[2025-06-15 07:21] LABS: Blood Urea Nitrogen 30 mg/dL (9-23); Glucose 118 mg/dL (74-106)
[2025-06-15] MEDS: FUROSEMIDE 40 MG TAB PO SCH (09:43)
[2025-06-15] MEDS: CARVEDILOL 3.125 MG TAB PO SCH (12:15)
[2025-06-15] MEDS ORDERED: AZIT500T66 PO (13:03)
[2025-06-15] MEDS ORDERED: PRED30TA4 PO (13:10)
--- NOTE | 2025-06-15 13:31 | DVHDSRES ---
Discharge Summary Date of Admission Resident Creating Document: YONATAN RODARTE Jun 10, 2025 at 16:02 Date of Discharge: Jun 15, 2025 Labs/Diagnostic Data: Laboratory Results Test 06/15/25 04:58 06/13/25 12:00 06/13/25 07:04 06/12/25 15:50 White Blood Count 6.7 10^3/uL (4.4-10.8) Red Blood Count 3.87 10^6/uL (4.0-5.20) Hemoglobin 12.0 g/dL (12.2-16.2) Hematocrit 35.4 % (36.0-46.0) Mean Corpuscular Volume 91.4 fL (80.0-100.0) Mean Corpuscular Hemoglobin 31.0 pg (28.0-32.0) Mean Corpuscular Hemoglobin Concent 33.9 g/dL (32.0-36.0) Red Cell Distribution Width 14.9 % (11.8-14.3) Platelet Count 204 10^3/uL (140-450) Mean Platelet Volume 7.7 fL (6.9-10.8) Neutrophils (%) (Auto) 88.8 % (37.0-80.0) Lymphocytes (%) (Auto) 5.1 % (10.0-50.0) Monocytes (%) (Auto) 6.0 % (0.0-12.0) Eosinophils (%) (Auto) 0.0 % (0.0-7.0) Basophils (%) (Auto) 0.1 % (0.0-2.0) Neutrophils # (Auto) 5.9 10 ^3/uL (1.6-8.6) Lymphocytes # (Auto) 0.3 10 ^3/uL (0.4-5.4) Monocytes # (Auto) 0.4 10 ^3/uL (0-1.3) Eosinophils # (Auto) 0 10 ^3/uL (0-0.8) Basophils # (Auto) 0 10 ^3/uL (0-0.2) Nucleated Red Blood Cells 0.1 % Sodium Level 140 mmol/L (136-145) Potassium Level 4.3 mmol/L (3.5-5.1) Chloride Level 102 mmol/L (98-107) Carbon Dioxide Level 30 mmol/L (20-31) Anion Gap 8 (5-15) Blood Urea Nitrogen 30 mg/dL (9-23) Creatinine 0.76 mg/dL (0.550-1.02) Glomerular Filtration Rate Calc 82 mL/min (>90) BUN/Creatinine Ratio 39.5 (10.0-20.0) Serum Glucose 118 mg/dL (74-106) Calcium Level 8.8 mg/dL (8.7-10.4) Total Bilirubin 0.5 mg/dL (0.2-1.0) Aspartate Amino Transferase (AST) 19 U/L (13-40) Alanine Aminotransferase (ALT) 17 U/L (7-40) Alkaline Phosphatase 48 U/L (46-116) Total Protein 5.8 g/dL (5.7-8.2) Albumin 3.8 g/dL (3.2-4.8) Blood Gas Specimen Type Arterial Blood Gas Sample Site Right radial Blood Gas Patient Temperature 37.0 Arterial Blood Date Drawn [id number] Arterial Blood pH 7.400 (7.350-7.450) Arterial Blood Partial Pressure CO2 41.0 mmHg (32.0-45.0) Arterial Blood Partial Pressure O2 84.5 mmHg (83.0-108.0) Arterial Blood HCO3 24.8 mmol/L (21.0-28.0) Arterial Blood Oxygen Saturation 95.7 % (94.0-98.0) Arterial Blood Base Excess 0.0 mmol/L (-2.0-3.0) Arterial Blood Oxyhemoglobin 94.7 % (94.0-98.0) Arterial Blood Carboxyhemoglobin 0.7 % (0.5-1.5) Arterial Blood Methemoglobin 0.3 % (0.0-1.5) Saad Test Modified Blood Gas Total Hemoglobin 12.80 g/dL (12.0-16.0) Blood Gas Modality Vent - cpap FiO2 % 35.0 Blood Gas Pressure Support 8 Blood Gas PEEP or CPAP 5.0 Blood Gas Set Respiration Rate 20.0 Blood Gas Tidal Volume 450.0 Blood Gas Critical Value Read Back Yes Blood Gas Notified Whom loretta Nur md Blood Gas Notified Time [id number] Blood Gas Notified By ginger Wilks geology teacher Test 06/12/25 02:36 06/11/25 04:40 06/10/25 15:14 06/10/25 12:42 POC Glucose 167 mg/dl (70-106) Magnesium Level 1.7 mg/dL (1.6-2.6) Troponin I High Sensitivity 12 ng/L (</=34) Influenza Type A Antigen Negative (Negative) Influenza Type B Antigen Negative (Negative) SARS-CoV-2 Antigen (Rapid) Negative (NEGATIVE) Test 06/10/25 12:27 06/10/25 12:16 Urine Color Light-yellow (Yellow) Urine Clarity Clear (Clear) Urine pH 6.0 (5.0-9.0) Urine Specific Ledger 1.015 (1.001-1.035) Urine Protein Negative (Negative) Urine Ketones Negative (Negative) Urine Blood Negative /uL (Negative) Urine Nitrite Negative (Negative) Urine Bilirubin Negative (Negative) Urine Urobilinogen Normal mg/dL (Negative) Urine Leukocyte Esterase Negative /uL (Negative) Urine RBC None seen /hpf (0 - 4) Urine Microscopic WBC 1 /HPF (0-5) Urine Squamous Epithelial Cells Few /hpf (<5) Urine Bacteria None seen /hpf (None Seen) Urine Glucose Normal mg/dL (Normal) D-Dimer, Quantitative 0.32 mg/L FEU (0.0-0.49) Lactic Acid Level 1.2 mmol/L (0.4-2.0) B-Type Natriuretic Peptide 100.50 pg/mL (0-100) Other Laboratory Tests 06/15/25 04:58 Brief Hx & Hospital Course: HISTORY OF PRESENT ILLNESS: This is a 75-year-old lady with a past medical history of COPD, HFpEF (EF 60% with concentric LVH and septal hypertrophy), hypertension, dyslipidemia and anxiety brought in by EMS from home due to altered mental status and shortness of breaths. Per patient's friend (Ingrid) she had fever and shortness of breaths since 1 day, and yesterday morning, [employer] friends went to check on her at home, and she was found shortness of breaths and altered mental status. Per ER patient was intubated and sedated. PMHx: COPD, HFpEF (EF 60% with concentric LVH and septal hypertrophy), hypertension, dyslipidemia PSHx: Hysterectomy due to endometritis Social history: Lives alone at home, uses walker for mobility, independent for daily life activity, current smoker with 40 pack year history, has a sister (next of kin, living in [place]), no relieved [place] Home medication: Lasix 20 mg, atorvastatin, aspirin, losartan, bupropion, seen and carvedilol Allergic history: No known allergy. HOSPITAL COURSE: Patient was admitted on the line of acute hypercapnic hypoxic respiratory failure, due to COPD exacerbation and possible pneumonia. The patient was given IV Solu-Medrol 40 mg t.i.d., empiric antibiotic (cefepime and azithromycin) and and breathing treatment. Due to CP and shortness of breaths, the patient was intubated and put on mechanical ventilation, patient was intubated for 3 days. COVID-19, influenza, blood and sputum culture were negative. On 06/15, patient was feeling better and had no active bleeding. Physical therapy evaluation performed, and they were able to walk with walker. Discharge plan discussed with the patient the patient discharged with azithromycin 500 mg for 4 days and prednisolone to 40 mg for 4 days, and was recommended to continue home meds, follow up with the PCP and pulmonology on outpatient basis. FINAL DIAGNOSIS: Acute metabolic encephalopathy, likely due to hypoxic/hypercapnic respiratory failure Acute on chronic diastolic heart failure Possible septic shock Hypertension Dyslipidemia Acute hypercapnic hypoxic respiratory failure, likely due to COPD exacerbation/pneumonia Pneumonia, likely due to Gram-positive/Gram-negative bacteria COPD exacerbation ANDRES, VMN, resolved Septic shock, likely due to sepsis Sepsis, likely due to pneumonia Hyperkalemia Anxiety Condition at Discharge: Good Final Diagnosis/Problems List COPD exacerbation Discharge Disposition: Home Discharge Instruct/Medications Diet: Cardiac 2g Na,low cholest Activity: No Restrictions, As Tolerated Follow Up/Referral: Follow up with the PCP within 1 week of the discharge. Follow up with the discharge Clinic within 1 week of the discharge. Medications: Azithromycin 500mg daily for 4 days. Prednisone 40 mg daily for 4 days Continue home meds Scheduled Albuterol Sulfate (Ventolin Mdi), 2 PUFF IN DAILY, (Reported) Atorvastatin Calcium (Atorvastatin Calcium), 40 MG PO HS, (Reported) Azithromycin (Azithromycin), 500 MG PO DAILY Bupropion Hcl (Bupropion Hcl Sr), 300 MG PO DAILY, (Reported) Carvedilol (Coreg), 3.125 MG PO Q12HR Citalopram Hydrobromide (Citalopram Hydrobromide), 20 MG PO DAILY, (Reported) Cyanocobalamin (Gnp Vitamin B12), 1,000 MCG PO DAILY Ergocalciferol (Vitamin D 95574 Unit), 50,000 UNIT PO Q7D Losartan Potassium (Losartan Potassium), 25 MG PO DAILY, (Reported) Methocarbamol (Methocarbamol), 500 MG PO BID Prednisolone Sodium Phosphate (Prednisolone Sodium Phosp), 40 MG PO DAILY Scheduled PRN Acetaminophen (Acetaminophen), 650 MG PO Q6HP PRN Hydroxyzine Pamoate (Hydroxyzine Pamoate), 50 MG PO BIDPRN PRN for ANXIETY, (Reported) Lorazepam (Ativan Tablet), 1 TAB PO DAILYPRN PRN, (Reported) Discharge Statement: "Patient was advised to return to the ER or call 911 if any headaches, dizziness, shortness of breath, chest pain, abdominal pain, bleeding, fevers, or worsening of medical condition. Patient was counseled about treatment plan, medications, possible side effects, patientverbalized understanding. All questions were answered to the best of my ability. This discharge took greater then 30 minutes in planning, reviewing documentation, counseling the patient, and discussing with other team members." ASSESSMENT ASSESSMENT Assessment COPD exacerbation YONATAN RODARTE Jun 15, 2025 13:31
== END 2025-06-15 15:15 | disposition home or self-care (01) | DRG 871 ==
LOC: ER 11:51 → EDBD 11:51 → OVERFLOW 16:02 → ICU WEST 16:02 → CENTRAL 06-14 10:23
PROVIDERS: ADMIT Internal Medicine Pulmonary Disease; ATTEND Internal Medicine Pulmonary Disease
PROC: 02H633Z Insertion of Infusion Device into Right Atrium, Percutaneous Approach (ICD-10-PCS; principal; 2025-06-10)
PROC: 0BH17EZ Insertion of Endotracheal Airway into Trachea, Via Natural or Artificial Opening (ICD-10-PCS; 2025-06-10)
PROC: 5A1945Z Respiratory Ventilation, 24-96 Consecutive Hours (ICD-10-PCS; 2025-06-10)
DX: A41.59 Other Gram-negative sepsis (principal); G93.41 Metabolic encephalopathy; J96.02 Acute respiratory failure with hypercapnia; N17.0 Acute kidney failure with tubular necrosis; J96.01 Acute respiratory failure with hypoxia; R65.21 Severe sepsis with septic shock; J15.69 Pneumonia due to other Gram-negative bacteria; J15.9 Unspecified bacterial pneumonia; I50.33 Acute on chronic diastolic (congestive) heart failure; J44.1 Chronic obstructive pulmonary disease with (acute) exacerbation; I31.39 Other pericardial effusion (noninflammatory); I11.0 Hypertensive heart disease with heart failure; I25.10 Atherosclerotic heart disease of native coronary artery without angina pectoris; E87.5 Hyperkalemia; K21.9 Gastro-esophageal reflux disease without esophagitis; E66.9 Obesity, unspecified; E78.5 Hyperlipidemia, unspecified; F41.9 Anxiety disorder, unspecified; Z68.31 Body mass index [BMI] 31.0-31.9, adult; Z79.899 Other long term (current) drug therapy
CPT/HCPCS: 31500; 36415; 36556; 36600; 71045; 80048; 80053; 81001; 82805; 82962; 83605; 83735; 83880; 84484; 85025; 85379; 87040; 87070; 87081; 87205; 87426; 87804; 93005; 93306; 94002; 94003; 94640; 97163; 99291; G0378; J2405; J2470